=== PATIENT | male | born 1980 | race Caucasian/White ===

== ENCOUNTER 2016-12-18 11:36 | Emergency (ER) | payer OTHER ==
--- NOTE | 2016-12-18 13:51 | DIAGNOSTIC IMAGING REPORT ---
PROCEDURE: CT ABD/PELVIS WITH CONTRAST INDICATION: Abdominal and periumbilical pain. Nausea and diarrhea. TECHNIQUE: 145 ml of Isovue 300 were injected intravenously and axial images were obtained of the entire abdomen and pelvis with sagittal and coronal reformations. COMPARISON: None. FINDINGS: ABDOMEN: Findings suggest moderate to marked mucosal thickening in the cecum and involving the terminal ileum. Bowel pattern is otherwise normal including retrocecal appendix. Gallbladder, liver, spleen, pancreas, kidneys, and aorta are normal. PELVIS: Pelvic structures are normal. No evidence of free fluid. IMPRESSION: 1. Moderate to marked mucosal thickening involving the cecum and terminal ileum. Overall appearance is suspicious for ileal colitis (e.g., infectious most likely, Crohn disease less likely). Neoplastic process is less likely, although still a consideration. 2. Normal retrocecal appendix. 3. Otherwise negative CT abdomen and pelvis. 4. Findings discussed with SPENSER Lopez. All CT scans at this facility use dose modulation, iterative reconstruction, and/or weight-based dosing when appropriate to reduce radiation dose to as low as reasonably achievable.
--- NOTE | 2016-12-18 14:00 | ED ORDER SUMMARY ---
..... Patient: RENATA CALDWELL OrderSheet [facility] VisitID: [id number] [place] [address] 36y, M Registration Date/Time: 12/18/2016 ORDER SHEET Weight: 110.6 kg (stated) Allergies: None GENERAL ORDERS: CT Abd/Pel w Cont (No) (pending) Urgent (12:12/18/2016 HBivens A.R.N.P.) (Ack 12:36 OHhilarionandez) (13:22 Thuy) CBC w Diff Urgent (12:12/18/2016 HBivens A.R.N.P.) (Ack 12:36 Jeffrynandez) (12:41 MWinterer R.N.) CMP Urgent (12:12/18/2016 HBivens A.R.N.P.) (Ack 12:36 Devon) (12:41 MWinterer R.N.) UA-Culture if indicated Urgent (12:12/18/2016 HBivens A.R.N.P.) (Ack 12:36 OHhilarionandez) (13:05 MWinterer R.N.) Amylase Urgent (12:12/18/2016 HBivens A.R.N.P.) (Ack 12:36 OHhilarionandez) (12:41 MWinterer R.N.) Lipase Urgent (12:12/18/2016 HBivens A.R.N.P.) (Ack 12:36 Jeffrynandez) (12:41 MWinterer R.N.) MEDICATION ORDERS: IV FLUIDS: IV NS : initial bolus none -, then 1000 mL/hr (NOW) (12:12/18/2016 MWinterer R.N. per protocol) (12:29 MWinterer R.N.) Toradol IV 30 mg (NOW) (12:12/18/2016 HBivens A.R.N.P.) (12:41 MWinterer R.N.) Zofran IV 4 mg (NOW) (12:12/18/2016 HBivens A.R.N.P.) (12:41 MWinterer R.N.) IV Saline Lock (12:31 12/18/2016 HBivens A.R.N.P.) (12:32 MWinterer R.N.) Dilaudid IV 1 mg (HIGH ALERT MEDICATION, NOW) (13:51 12/18/2016 HBivens A.R.N.P.) (Ack 13:52 MWinterer R.N.) (14:00 MWinterer R.N.) Flagyl IV 500 mg/100mL (NOW) (13:59 12/18/2016 HBivens A.R.N.P.) (Ack 14:08 MWinterer R.N.) (14:30 MWinterer R.N.) Decadron IV 10 mg (NOW) (14:01 12/18/2016 HBivens A.R.N.P.) (Ack 14:08 MWinterer R.N.) (14:29 MWinterer R.N.) Dilaudid IV 1 mg (HIGH ALERT MEDICATION, NOW) (15:20 12/18/2016 HBivens A.R.N.P.) (15:20 MWinterer R.N.) ORDER SHEET NOTES: [Electronically signed by Paulette Gonzalez R.N. (16:16 12/18/2016)] [Electronically signed by Jennifer MartinR.N.P. (18:38 12/18/2016)] [Electronically locked/signed by Paulette Gonzalez R.N. (16:16 12/18/2016)]
--- NOTE | 2016-12-18 14:00 | ED CLINICAL REPORT ---
Clinical Report - Physicians/Mid Levels [facility] [address] [place] [address] 12/18/2016 11:37 Patient: RENATA CALDWELL Time Seen: 12:25; initial patient contact, initial documentation, patient care assumed. Arrived- By private vehicle. Historian- patient. HISTORY OF PRESENT ILLNESS Chief Complaint: ABDOMINAL PAIN. At its maximum, severity described as severe. When seen in the E.D., severity described as severe. Modifying factors- worsened by walking and supine position. Not relieved by anything. It is described as "pain", sharp and stabbing. No radiation. It is described as located in the upper abdomen, in the periumbilical area and in the lower abdomen. This started last night and is still present. It was abrupt in onset and has been constant. The patient has had nausea and loss of appetite. No vomiting or diarrhea. No additional abdominal pain. (took several otc meds, no better, pain is getting worse). No recent travel. Similar symptoms previously: None. Recent medical care: Not recently seen/assessed. REVIEW OF SYSTEMS No constipation, black stools, hematemesis, difficulty with urination or pain with urination. No urinary frequency, fever, chest pain or difficulty breathing. All systems otherwise negative, except as recorded above. PAST HISTORY Negative. SOCIAL HISTORY Never smoker. Occasional alcohol use. No drug use. No recent travel. Is a local resident. FAMILY HISTORY Negative. ADDITIONAL NOTES The nursing notes have been reviewed with agreement regarding the chief complaint, HPI, ROS, PMH and patient medications and allergies. PHYSICAL EXAM Vital Signs: 12/18/2016 12:07 BP: 156/102. HR: 57. RR: 18. O2 saturation: 97%. Temp: 98.5 F. Pain level now: 10/10. Have been reviewed as abnormal and appear to be correct. Hypertensive. Bradycardic. Respiratory rate normal. Temperature normal. Oxygen saturation normal. Appearance: Alert. Oriented X3. No acute distress. (pt laying position upon entering room in obvious discomfort). Eyes: Pupils equal, round and reactive to light. Eyes normal inspection. Neck: Normal inspection. Neck supple. CVS: Normal heart rate and rhythm. Heart sounds normal. Pulses normal. Respiratory: No respiratory distress. Breath sounds normal. Chest nontender. Abdomen: Soft. Moderate tenderness diffusely and in the periumbilical area (tender all around umbilicus). No guarding, rebound tenderness or Pat's, obturator or psoas sign present. Bowel sounds normal. No organomegaly. No mass. Tenderness present. Back: Normal inspection. Skin: Skin warm and dry. Normal skin color. No rash. Normal skin turgor. Extremities: Extremities exhibit normal ROM. No lower extremity edema. Neuro: Oriented X 3. No motor deficit. No sensory deficit. LABS, X-RAYS, AND EKG Abdominal CT: . IMPRESSION: 1. Moderate to marked mucosal thickening involving the cecum and terminal ileum. Overall appearance is suspicious for ileal colitis (e.g., infectious most likely, Crohn disease less likely). Neoplastic process is less likely, although still a consideration. 2. Normal retrocecal appendix. 3. Otherwise negative CT abdomen and pelvis. 4. Findings discussed with SPENSER Lopez. All CT scans at this facility use dose modulation, iterative reconstruction, and/or weight-based dosing when appropriate to reduce radiation dose to as low as reasonably achievable. Electronically Final signed by:Jules Garcia MD 12/18/2016 1:45:55 PM. The study was interpreted by the radiologist and discussed with the radiologist. Interpretation time: 13:49. Laboratory Tests: UA-Culture if indicated: (JOEL: 12/18/2016 13:00) ( MsgRcvd 12/18/2016 13:46) Final results Test Result Flag Units (Reference) URINE COLOR YELLOW URINE APPEARANCE CLEAR URINE GLUCOSE NEGATIVE (NEGATIVE) URINE BILIRUBIN NEGATIVE (NEGATIVE) URINE KETONE TRACE (NEGATIVE) URINE SPECIFIC GRAVITY 1.015 (1.010-1.030) URINE PH 6.5 (5.0-8.0) URINE PROTEIN NEGATIVE (NEGATIVE) URINE UROBILINOGEN 0.2 EU/dL (0.2-1.0) URINE NITRITE NEGATIVE (NEGATIVE) URINE BLOOD TRACE-INTACT (NEGATIVE) URINE LEUK ESTERASE NEGATIVE (NEGATIVE) URINE RBC 1-3 rbc/hpf (0-1) URINE WBC 0-1 wbc/hpf (0-1) URINE EPITHELIAL CELLS 0-1 EPI/hpf (0-5) URINE BACTERIA NONE SEEN (NONE SEEN) URINE COMMENT CULT NOT INDICATED URINE CULTURES ARE SET-UP BASED ON THE FOLLOWING CRITERIA:POSITIVE NITRITEPOSITIVE LEUKOCYTE ESTERASEGREATER THAN 10 WHITE BLOOD CELLSMODERATE (2+) OR GREATER BACTERIA CBC w Diff: (JOEL: 12/18/2016 12:15) ( [facility] 12/18/2016 13:33) Final results Test Result Flag Units (Reference) WHITE BLOOD COUNT 7.9 K/uL (4.5-11.5) RED BLOOD COUNT 6.25 *H M/uL (4.50-5.90) HEMOGLOBIN 18.4 H gm/dL (13.5-17.5) HEMATOCRIT 54.8 H % (41.0-53.0) MEAN CELL VOLUME 88 fL (80-100) MEAN CORPUSCULAR HGB 30 pg (26-34) MEAN CORPUSCULAR HGB CONC 34 g/dL (31-37) RED CELL DISTRIBUTION WIDTH 13.4 % (11.6-14.8) PLATELET COUNT 226 K/uL (150-400) POLY % 75 % (50-75) BAND % 0 % (0-8) LYMPH 20 L % (25-40) MONO 5 % (3-14) EOSINOPHIL % 0 % (0-4) BASOPHIL % 0 % (0-2) METAMYELOCYTE % 0 % (0-1) MYELOCYTE 0 % (0-1) OTHER CELL TYPE 0 CMP: (JOEL: 12/18/2016 12:15) ( [facility] 12/18/2016 12:59) Final results Test Result Flag Units (Reference) GLUCOSE 121 H mg/dL (70-110) BUN 12 mg/dL (7-18) CREATININE 1.2 mg/dL (0.6-1.3) Estimated GFR >60 mL/min Estimated GFR- >60 mL/min Note: Persistent reduction over 3 months in eGFR<60 mL/min/1.73 m2 defines CKD. Patients with eGFR values>=60 mL/min/1.73 m2 may also have CKD if evidence ofpersistent proteinuria. Additional information may be foundat [email or web address].org. SODIUM 133 L mmol/L (136-145) POTASSIUM 4.0 mmol/L (3.5-5.1) CHLORIDE 96 L mmol/L (98-107) CARBON DIOXIDE 34 H mmol/L (21-32) CALCIUM 9.6 mg/dL (8.5-10.1) TOTAL PROTEIN 7.3 g/dL (6.4-8.2) ALBUMIN 4.1 g/dL (3.3-5.0) BILIRUBIN, TOTAL 0.7 mg/dL (0.0-1.0) ALKALINE PHOSPHATASE 54 U/L (46-116) AST (SGOT) 48 H U/L (15-37) ALT (SGPT) 80 H U/L (12-78) LIPASE 150 U/L (73-393) AMYLASE 59 U/L (25-115) . PROGRESS AND PROCEDURES Course of Care: 12/18/2016 16:00 BP: 182/88. HR: 60. RR: 19. O2 saturation: 100%. Temp: 98.4 F. Vital Signs: have been reviewed as abnormal and appear to be correct. Hypertensive. Heart rate normal. Respiratory rate normal. Temperature normal. Oxygen saturation normal. Patient and family counseled in person regarding the patient's stable condition, test results and diagnosis. 1355. Differential Diagnosis: I considered gastritis, gastroenteritis, peptic ulcer disease, gastroesophageal reflux disease, acute appendicitis, mesenteric lymphadenitis, diverticulitis, colon cancer, Crohn's disease, obstipation, biliary colic, cholecystitis, cholelithiasis, hepatitis, pancreatitis, common bile duct obstruction, cholangitis, ureterolithiasis and viral syndrome as a possible cause of abdominal pain in this patient. This is a partial list of diagnoses considered. Above considerations are based on history, physical exam, reassessment, laboratory data and other information. Differential diagnosis was discussed with patient. Disposition: Discharged home in good and improved condition (14:00). Condition: good and stable. CLINICAL IMPRESSION Acute inflammatory colitis; infectious colitis. INSTRUCTIONS Do not work tomorrow, for two days. Warnings: Further evaluation is necessary in order to assess the possibility of serious illness. It is very important to follow up with a physician. GENERAL WARNINGS: Return or contact your physician immediately if your condition worsens or changes unexpectedly, if not improving as expected, or if other problems arise. SPECIFICALLY, return if you develop pain in the abdomen, fever, the inability to keep fluids down, blood in vomitus, blood in diarrhea, fainting or lightheadedness. Prescription Medications: Zofran 4 mg: Take 1 orally every six hours as needed for nausea/vomiting. Dispense ten (10). No refills. Substitution is permissible. Flagyl 500 mg: Take 1 tablet orally every 12 hours for 7 days. No refill. Substitution is permissible. [place] 5 mg / 325 mg tablets: take 1 to 2 orally every 6 hours as needed for pain. Dispense fifteen (15). No refills. Substitution is permissible. Bentyl 20 mg tablets: take 1 orally every 6 hours as needed. Dispense thirty (30). No refills. Substitution is permissible. Prednisone 20 mg: take 3 orally every day for 5 days. Dispense fifteen (15). No refills. Follow-up: Follow up with your doctor tomorrow even if well. Call for an appointment. Summary of care provided to patient. Screening today revealed the patient's blood pressure to be in the hypertensive range. The patient should follow up with a primary care provider for blood pressure management. Understanding of the discharge instructions verbalized by patient. Follow-up with: Antoine Wellington MD, Gastroenterology, [address] [place] [address], [address] [place] [address] [address] , [place], [address]; Fredo Piper MD, Gastroenterology, [address] [place] [address], [address] [place] [address], [address], [place], [address]; Shirin Correa MD, Gastroenteroloy, [address] [place] [address], [address] [place] [address] [address], [place], [address]; Sammy Hemphill MD, Gastroenteroloy, [address] [place] [address], [address] [place] [address] [address], [place], [address]; Aminta Irwin MD, Gastroenteroloy, [address] [place] [address], [address] [place] [address] [address], [place], [address] Follow up tomorrow in about days even if well. Call for an appointment. Summary of care provided to patient and family. (Electronically signed by Jennifer Martin A.R.N.P. 12/18/2016 18:38)
--- NOTE | 2016-12-18 14:00 | ED NURSING NOTES ---
Clinical Report - Nurses [facility] [address] [place] [address] 12/18/2016 11:37 Patient: RENATA CALDWELL TRIAGE Triage time 12:07. Acuity: LEVEL 2. Chief Complaint: ABDOMINAL PAIN and NAUSEA and ("pressure"). --12:15 Bee White R.N. 12:07 12/18/16. BP: 156/102. HR: 57. RR: 18. O2 saturation: 97%. Temp: 98.5 F. Pain level now: 04/11. Additional comments: 04/11 abdominal pain. --12:15 Bee White R.N. Weight: 110.6 kg stated. Height/Length: 73 inches Per Patient. BMI: 32.2. --12:13 Bee White R.N. Medications None. --12:11 Bee White R.N. Allergies None. --12:11 Bee White R.N. History Arrived by private vehicle. Historian: patient. This started last night. ( Abdominal pain that started last night around 2100, had eaten a meal and was just feeling "a little full" but then started to have more and more pain, with nausea. No diarrhea. Pain generalized, does not radiate to back.). 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 PAST MEDICAL HX: Immunizations: status is unknown. FALL RISK ASSESSMENT: Fall risk assessment completed. No fall risk identified. NUTRITIONAL RISK ASSESSMENT: The nutritional risk assessment revealed no deficiencies. FUNCTIONAL ASSESSMENT: Functional assessment: no impairments noted. LEARNING NEEDS ASSESSMENT: The learning needs assessment revealed no barriers. SKIN INTEGRITY ASSESSMENT: Skin integrity risk assessment completed. No skin integrity risk identified. --12:15 Bee White R.N. PROBLEMS: None. --12:11 Bee White R.N. Assessment The patient states feels the same. --12:15 Bee White R.N. Interventions ID band on patient. --12:15 Bee White R.N. PHYSICAL ASSESSMENT 12:56 12/18/16. Ambulatory to room. GENERAL / NEURO / PSYCH: Alert. Oriented X 4. Appears in no acute distress. HEENT: Mucous membranes are pink. RESPIRATORY: Respirations not labored. CVS: Capillary refill less than 2 seconds. GI / : Abdomen soft and nontender. SKIN: Skin is warm and dry. --12:56 Paulette Gonzalez R.N. NURSING PROGRESS NOTES 12:12/18/2016 Site #1 started via IV in the left antecubital space with an 20g angiocath, with aseptic technique and good blood return; one attempt. Blood drawn: rainbow set and pediatric tubes. Labeled in the presence of the patient and sent to the lab. --12:28 Paulette Gonzalez R.N. 12:12/18/2016 Started bag #1 1000 mL IV Fluids IV NS (Saline); at 1000 mL/hr over 1 hour(s) via site #1 via IV pump. Allergies verified and confirmed 5 rights. IV patency established. IV site checked: no pain, redness, or swelling. IV flushed thoroughly pre- and post-medication administration. --12:29 Paulette Gonzalez R.N. 12:41 12/18/2016 Toradol IVP 30 mg given over 1 minute(s) via site #1. Allergies verified and confirmed 5 rights. IV patency established. IV site checked: no pain, redness, or swelling. IV flushed thoroughly pre- and post-medication administration. IVP given by RN. --12:41 Paulette Gonzalez R.N. 12:41 12/18/2016 Zofran (Ondansetron HCl) IVP 4 mg given over 1 minute(s) via site #1. Allergies verified and confirmed 5 rights. IV patency established. IV site checked: no pain, redness, or swelling. IV flushed thoroughly pre- and post-medication administration. IVP given by RN. --12:41 Paulette Gonzalez R.N. Patient gowned. Two patient identifiers checked. Checked patient name and birthdate. Call light placed in reach. Bed placed in lowest position. Brakes of bed on. ( Pt ambulated to BR.). --12:56 Paulette Gonzalez R.N. 13:05 12/18/16. Checked patient name and birthdate: patient confirmed urine collected with return of yellow-colored clear urine; sample sent to lab. Specimen labeled in the presence of the patient. --13:05 Paulette Gonzalez R.N. 13:30 12/18/2016 IV Fluids IV NS Discontinued: bag #1 infused. Total amount infused: 1000 mL. IV patency established. IV site checked: no pain, redness, or swelling. IV flushed thoroughly. --16:13 Paulette Gonzalez R.N. 14:00 12/18/2016 Dilaudid (HYDROmorphone HCl PF) IVP 1 mg given over 2 minute(s) via site #1. Allergies verified, confirmed 5 rights and sedative warning given to the patient. IV patency established. IV site checked: no pain, redness, or swelling. IV flushed thoroughly pre- and post-medication administration. IVP given by RN. --14:00 Paulette Gonzalez R.N. 14:29 12/18/2016 Decadron IVP 10 mg given over 2 minute(s) via site #1. Allergies verified and confirmed 5 rights. IV patency established. IV site checked: no pain, redness, or swelling. IV flushed thoroughly pre- and post-medication administration. IVP given by RN. --14:29 Paulette Gonzalez R.N. 14:30 12/18/2016 Started 500 mg of Flagyl (MetroNIDAZOLE in NaCl) IVPB in bag #1 100 mL; at 100 mL/hr over 1 hour(s) via site #1 via IV pump. Allergies verified and confirmed 5 rights. IV patency established. IV site checked: no pain, redness, or swelling. IV flushed thoroughly pre- and post-medication administration. --14:30 Paulette Gonzalez R.N. 14:12/18/2016 Started bag #2 500 mL IV Fluids IV NS (Saline); at 500 mL/hr over 1 hour(s) via site #1 via IV pump. Allergies verified and confirmed 5 rights. IV patency established. IV site checked: no pain, redness, or swelling. IV flushed thoroughly pre- and post-medication administration (Bag 2 started with antibiotics). --16:15 Paulette Gonzalez R.N. 15:20 12/18/2016 Dilaudid (HYDROmorphone HCl PF) IVP 1 mg given over 1 minute(s) via site #1. Allergies verified, confirmed 5 rights and sedative warning given to the patient. IV patency established. IV site checked: no pain, redness, or swelling. IV flushed thoroughly pre- and post-medication administration. IVP given by RN. --15:20 Paulette Gonzalez R.N. 15:20 12/18/2016 IV Fluids IV NS Discontinued: bag #2 infused upon discharge. Total amount infused: 500 mL. IV patency established. IV site checked: no pain, redness, or swelling. IV flushed thoroughly. --16:16 Paulette Gonzalez R.N. 15:45 12/18/2016 Flagyl IVPB Discontinued: bag #1 infused. Total amount infused: 100 mL. IV patency established. IV site checked: no pain, redness, or swelling. IV flushed thoroughly. --16:00 Bobby Galdamez R.N. 15:55 12/18/2016 Site #1 removed upon discharge. Catheter intact. Manual pressure and bandage applied. --16:16 Paulette Gonzalez R.N. DISPOSITION / DISCHARGE 16:02 12/18/16. Departure time: 1559. Condition at departure: improved and stable. ( TRANSITION RN aware of discharge BP). No learning barriers present. Discharge instructions provided and reviewed with the patient. Reviewed medication(s) side effects, precautions, dosing and course information. Prescription(s) given to the patient. Work note given. Patient verbalized understanding. Written instructions provided in Macedonian. The patient was discharged by the nurse practitioner. He was discharged home and accompanied by spouse. He left the Emergency Department ambulatory and via private vehicle. Spouse driving. --16:06 Bobby Galdamez R.N. 16:00 12/18/16. BP: 182/88. HR: 60. RR: 19. O2 saturation: 100% on room air. Temp: 98.4 F (oral). Pain level now 6/10. --16:06 Bobby Galdamez R.N. Locked/Released at 12/18/2016 16:16 by Paulette Gonzalez R.N.
--- NOTE | 2016-12-18 14:00 | ED NURSING NOTES ---
Clinical Report - Nurses [facility] [address] [place] [address] 12/18/2016 11:37 Patient: RENATA CALDWELL TRIAGE Triage time 12:07. Acuity: LEVEL 2. Chief Complaint: ABDOMINAL PAIN and NAUSEA and ("pressure"). --12:15 Bee White R.N. 12:07 12/18/16. BP: 156/102. HR: 57. RR: 18. O2 saturation: 97%. Temp: 98.5 F. Pain level now: 04/11. Additional comments: 04/11 abdominal pain. --12:15 Bee White R.N. Weight: 110.6 kg stated. Height/Length: 73 inches Per Patient. BMI: 32.2. --12:13 Bee White R.N. Medications None. --12:11 Bee White R.N. Allergies None. --12:11 Bee White R.N. History Arrived by private vehicle. Historian: patient. This started last night. ( Abdominal pain that started last night around 2100, had eaten a meal and was just feeling "a little full" but then started to have more and more pain, with nausea. No diarrhea. Pain generalized, does not radiate to back.). 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 PAST MEDICAL HX: Immunizations: status is unknown. FALL RISK ASSESSMENT: Fall risk assessment completed. No fall risk identified. NUTRITIONAL RISK ASSESSMENT: The nutritional risk assessment revealed no deficiencies. FUNCTIONAL ASSESSMENT: Functional assessment: no impairments noted. LEARNING NEEDS ASSESSMENT: The learning needs assessment revealed no barriers. SKIN INTEGRITY ASSESSMENT: Skin integrity risk assessment completed. No skin integrity risk identified. --12:15 Bee White R.N. PROBLEMS: None. --12:11 Bee White R.N. Assessment The patient states feels the same. --12:15 Bee White R.N. Interventions ID band on patient. --12:15 Bee White R.N. PHYSICAL ASSESSMENT 12:56 12/18/16. Ambulatory to room. GENERAL / NEURO / PSYCH: Alert. Oriented X 4. Appears in no acute distress. HEENT: Mucous membranes are pink. RESPIRATORY: Respirations not labored. CVS: Capillary refill less than 2 seconds. GI / : Abdomen soft and nontender. SKIN: Skin is warm and dry. --12:56 Paulette Gonzalez R.N. NURSING PROGRESS NOTES 12:12/18/2016 Site #1 started via IV in the left antecubital space with an 20g angiocath, with aseptic technique and good blood return; one attempt. Blood drawn: rainbow set and pediatric tubes. Labeled in the presence of the patient and sent to the lab. --12:28 Paulette Gonzalez R.N. 12:12/18/2016 Started bag #1 1000 mL IV Fluids IV NS (Saline); at 1000 mL/hr over 1 hour(s) via site #1 via IV pump. Allergies verified and confirmed 5 rights. IV patency established. IV site checked: no pain, redness, or swelling. IV flushed thoroughly pre- and post-medication administration. --12:29 Paulette Gonzalez R.N. 12:41 12/18/2016 Toradol IVP 30 mg given over 1 minute(s) via site #1. Allergies verified and confirmed 5 rights. IV patency established. IV site checked: no pain, redness, or swelling. IV flushed thoroughly pre- and post-medication administration. IVP given by RN. --12:41 Paulette Gonzalez R.N. 12:41 12/18/2016 Zofran (Ondansetron HCl) IVP 4 mg given over 1 minute(s) via site #1. Allergies verified and confirmed 5 rights. IV patency established. IV site checked: no pain, redness, or swelling. IV flushed thoroughly pre- and post-medication administration. IVP given by RN. --12:41 Paulette Gonzalez R.N. Patient gowned. Two patient identifiers checked. Checked patient name and birthdate. Call light placed in reach. Bed placed in lowest position. Brakes of bed on. ( Pt ambulated to BR.). --12:56 Paulette Gonzalez R.N. 13:05 12/18/16. Checked patient name and birthdate: patient confirmed urine collected with return of yellow-colored clear urine; sample sent to lab. Specimen labeled in the presence of the patient. --13:05 Paulette Gonzalez R.N. 13:30 12/18/2016 IV Fluids IV NS Discontinued: bag #1 infused. Total amount infused: 1000 mL. IV patency established. IV site checked: no pain, redness, or swelling. IV flushed thoroughly. --16:13 Paulette Gonzalez R.N. 14:00 12/18/2016 Dilaudid (HYDROmorphone HCl PF) IVP 1 mg given over 2 minute(s) via site #1. Allergies verified, confirmed 5 rights and sedative warning given to the patient. IV patency established. IV site checked: no pain, redness, or swelling. IV flushed thoroughly pre- and post-medication administration. IVP given by RN. --14:00 Paulette Gonzalez R.N. 14:29 12/18/2016 Decadron IVP 10 mg given over 2 minute(s) via site #1. Allergies verified and confirmed 5 rights. IV patency established. IV site checked: no pain, redness, or swelling. IV flushed thoroughly pre- and post-medication administration. IVP given by RN. --14:29 Paulette Gonzalez R.N. 14:30 12/18/2016 Started 500 mg of Flagyl (MetroNIDAZOLE in NaCl) IVPB in bag #1 100 mL; at 100 mL/hr over 1 hour(s) via site #1 via IV pump. Allergies verified and confirmed 5 rights. IV patency established. IV site checked: no pain, redness, or swelling. IV flushed thoroughly pre- and post-medication administration. --14:30 Paulette Gonzalez R.N. 14:12/18/2016 Started bag #2 500 mL IV Fluids IV NS (Saline); at 500 mL/hr over 1 hour(s) via site #1 via IV pump. Allergies verified and confirmed 5 rights. IV patency established. IV site checked: no pain, redness, or swelling. IV flushed thoroughly pre- and post-medication administration (Bag 2 started with antibiotics). --16:15 Paulette Gonzalez R.N. 15:20 12/18/2016 Dilaudid (HYDROmorphone HCl PF) IVP 1 mg given over 1 minute(s) via site #1. Allergies verified, confirmed 5 rights and sedative warning given to the patient. IV patency established. IV site checked: no pain, redness, or swelling. IV flushed thoroughly pre- and post-medication administration. IVP given by RN. --15:20 Paulette Gonzalez R.N. 15:20 12/18/2016 IV Fluids IV NS Discontinued: bag #2 infused upon discharge. Total amount infused: 500 mL. IV patency established. IV site checked: no pain, redness, or swelling. IV flushed thoroughly. --16:16 Paulette Gonzalez R.N. 15:45 12/18/2016 Flagyl IVPB Discontinued: bag #1 infused. Total amount infused: 100 mL. IV patency established. IV site checked: no pain, redness, or swelling. IV flushed thoroughly. --16:00 Bobby Galdamez R.N. 15:55 12/18/2016 Site #1 removed upon discharge. Catheter intact. Manual pressure and bandage applied. --16:16 Paulette Gonzalez R.N. DISPOSITION / DISCHARGE 16:02 12/18/16. Departure time: 1559. Condition at departure: improved and stable. ( INVENTORY AUDIT CLERK aware of discharge BP). No learning barriers present. Discharge instructions provided and reviewed with the patient. Reviewed medication(s) side effects, precautions, dosing and course information. Prescription(s) given to the patient. Work note given. Patient verbalized understanding. Written instructions provided in Wolof. The patient was discharged by the nurse practitioner. He was discharged home and accompanied by spouse. He left the Emergency Department ambulatory and via private vehicle. Spouse driving. --16:06 Bobby Galdamez R.N. 16:00 12/18/16. BP: 182/88. HR: 60. RR: 19. O2 saturation: 100% on room air. Temp: 98.4 F (oral). Pain level now 6/10. --16:06 Bobby Galdamez R.N. Locked/Released at 12/18/2016 16:16 by Paulette Gonzalez R.N.
--- NOTE | 2016-12-18 14:00 | ED CLINICAL REPORT ---
Clinical Report - Physicians/Mid Levels [facility] [address] [place] [address] 12/18/2016 11:37 Patient: RENATA CALDWELL Time Seen: 12:25; initial patient contact, initial documentation, patient care assumed. Arrived- By private vehicle. Historian- patient. HISTORY OF PRESENT ILLNESS Chief Complaint: ABDOMINAL PAIN. At its maximum, severity described as severe. When seen in the E.D., severity described as severe. Modifying factors- worsened by walking and supine position. Not relieved by anything. It is described as "pain", sharp and stabbing. No radiation. It is described as located in the upper abdomen, in the periumbilical area and in the lower abdomen. This started last night and is still present. It was abrupt in onset and has been constant. The patient has had nausea and loss of appetite. No vomiting or diarrhea. No additional abdominal pain. (took several otc meds, no better, pain is getting worse). No recent travel. Similar symptoms previously: None. Recent medical care: Not recently seen/assessed. REVIEW OF SYSTEMS No constipation, black stools, hematemesis, difficulty with urination or pain with urination. No urinary frequency, fever, chest pain or difficulty breathing. All systems otherwise negative, except as recorded above. PAST HISTORY Negative. SOCIAL HISTORY Never smoker. Occasional alcohol use. No drug use. No recent travel. Is a local resident. FAMILY HISTORY Negative. ADDITIONAL NOTES The nursing notes have been reviewed with agreement regarding the chief complaint, HPI, ROS, PMH and patient medications and allergies. PHYSICAL EXAM Vital Signs: 12/18/2016 12:07 BP: 156/102. HR: 57. RR: 18. O2 saturation: 97%. Temp: 98.5 F. Pain level now: 10/10. Have been reviewed as abnormal and appear to be correct. Hypertensive. Bradycardic. Respiratory rate normal. Temperature normal. Oxygen saturation normal. Appearance: Alert. Oriented X3. No acute distress. (pt laying position upon entering room in obvious discomfort). Eyes: Pupils equal, round and reactive to light. Eyes normal inspection. Neck: Normal inspection. Neck supple. CVS: Normal heart rate and rhythm. Heart sounds normal. Pulses normal. Respiratory: No respiratory distress. Breath sounds normal. Chest nontender. Abdomen: Soft. Moderate tenderness diffusely and in the periumbilical area (tender all around umbilicus). No guarding, rebound tenderness or Pat's, obturator or psoas sign present. Bowel sounds normal. No organomegaly. No mass. Tenderness present. Back: Normal inspection. Skin: Skin warm and dry. Normal skin color. No rash. Normal skin turgor. Extremities: Extremities exhibit normal ROM. No lower extremity edema. Neuro: Oriented X 3. No motor deficit. No sensory deficit. LABS, X-RAYS, AND EKG Abdominal CT: . IMPRESSION: 1. Moderate to marked mucosal thickening involving the cecum and terminal ileum. Overall appearance is suspicious for ileal colitis (e.g., infectious most likely, Crohn disease less likely). Neoplastic process is less likely, although still a consideration. 2. Normal retrocecal appendix. 3. Otherwise negative CT abdomen and pelvis. 4. Findings discussed with SPENSER Lopez. All CT scans at this facility use dose modulation, iterative reconstruction, and/or weight-based dosing when appropriate to reduce radiation dose to as low as reasonably achievable. Electronically Final signed by:Jules Garcia MD 12/18/2016 1:45:55 PM. The study was interpreted by the radiologist and discussed with the radiologist. Interpretation time: 13:49. Laboratory Tests: UA-Culture if indicated: (JOEL: 12/18/2016 13:00) ( MsgRcvd 12/18/2016 13:46) Final results Test Result Flag Units (Reference) URINE COLOR YELLOW URINE APPEARANCE CLEAR URINE GLUCOSE NEGATIVE (NEGATIVE) URINE BILIRUBIN NEGATIVE (NEGATIVE) URINE KETONE TRACE (NEGATIVE) URINE SPECIFIC GRAVITY 1.015 (1.010-1.030) URINE PH 6.5 (5.0-8.0) URINE PROTEIN NEGATIVE (NEGATIVE) URINE UROBILINOGEN 0.2 EU/dL (0.2-1.0) URINE NITRITE NEGATIVE (NEGATIVE) URINE BLOOD TRACE-INTACT (NEGATIVE) URINE LEUK ESTERASE NEGATIVE (NEGATIVE) URINE RBC 1-3 rbc/hpf (0-1) URINE WBC 0-1 wbc/hpf (0-1) URINE EPITHELIAL CELLS 0-1 EPI/hpf (0-5) URINE BACTERIA NONE SEEN (NONE SEEN) URINE COMMENT CULT NOT INDICATED URINE CULTURES ARE SET-UP BASED ON THE FOLLOWING CRITERIA:POSITIVE NITRITEPOSITIVE LEUKOCYTE ESTERASEGREATER THAN 10 WHITE BLOOD CELLSMODERATE (2+) OR GREATER BACTERIA CBC w Diff: (JOEL: 12/18/2016 12:15) ( [facility] 12/18/2016 13:33) Final results Test Result Flag Units (Reference) WHITE BLOOD COUNT 7.9 K/uL (4.5-11.5) RED BLOOD COUNT 6.25 *H M/uL (4.50-5.90) HEMOGLOBIN 18.4 H gm/dL (13.5-17.5) HEMATOCRIT 54.8 H % (41.0-53.0) MEAN CELL VOLUME 88 fL (80-100) MEAN CORPUSCULAR HGB 30 pg (26-34) MEAN CORPUSCULAR HGB CONC 34 g/dL (31-37) RED CELL DISTRIBUTION WIDTH 13.4 % (11.6-14.8) PLATELET COUNT 226 K/uL (150-400) POLY % 75 % (50-75) BAND % 0 % (0-8) LYMPH 20 L % (25-40) MONO 5 % (3-14) EOSINOPHIL % 0 % (0-4) BASOPHIL % 0 % (0-2) METAMYELOCYTE % 0 % (0-1) MYELOCYTE 0 % (0-1) OTHER CELL TYPE 0 CMP: (JOEL: 12/18/2016 12:15) ( [facility] 12/18/2016 12:59) Final results Test Result Flag Units (Reference) GLUCOSE 121 H mg/dL (70-110) BUN 12 mg/dL (7-18) CREATININE 1.2 mg/dL (0.6-1.3) Estimated GFR >60 mL/min Estimated GFR- >60 mL/min Note: Persistent reduction over 3 months in eGFR<60 mL/min/1.73 m2 defines CKD. Patients with eGFR values>=60 mL/min/1.73 m2 may also have CKD if evidence ofpersistent proteinuria. Additional information may be foundat www.[email or web address].org. SODIUM 133 L mmol/L (136-145) POTASSIUM 4.0 mmol/L (3.5-5.1) CHLORIDE 96 L mmol/L (98-107) CARBON DIOXIDE 34 H mmol/L (21-32) CALCIUM 9.6 mg/dL (8.5-10.1) TOTAL PROTEIN 7.3 g/dL (6.4-8.2) ALBUMIN 4.1 g/dL (3.3-5.0) BILIRUBIN, TOTAL 0.7 mg/dL (0.0-1.0) ALKALINE PHOSPHATASE 54 U/L (46-116) AST (SGOT) 48 H U/L (15-37) ALT (SGPT) 80 H U/L (12-78) LIPASE 150 U/L (73-393) AMYLASE 59 U/L (25-115) . PROGRESS AND PROCEDURES Course of Care: 12/18/2016 16:00 BP: 182/88. HR: 60. RR: 19. O2 saturation: 100%. Temp: 98.4 F. Vital Signs: have been reviewed as abnormal and appear to be correct. Hypertensive. Heart rate normal. Respiratory rate normal. Temperature normal. Oxygen saturation normal. Patient and family counseled in person regarding the patient's stable condition, test results and diagnosis. 1355. Differential Diagnosis: I considered gastritis, gastroenteritis, peptic ulcer disease, gastroesophageal reflux disease, acute appendicitis, mesenteric lymphadenitis, diverticulitis, colon cancer, Crohn's disease, obstipation, biliary colic, cholecystitis, cholelithiasis, hepatitis, pancreatitis, common bile duct obstruction, cholangitis, ureterolithiasis and viral syndrome as a possible cause of abdominal pain in this patient. This is a partial list of diagnoses considered. Above considerations are based on history, physical exam, reassessment, laboratory data and other information. Differential diagnosis was discussed with patient. Disposition: Discharged home in good and improved condition (14:00). Condition: good and stable. CLINICAL IMPRESSION Acute inflammatory colitis; infectious colitis. INSTRUCTIONS Do not work tomorrow, for two days. Warnings: Further evaluation is necessary in order to assess the possibility of serious illness. It is very important to follow up with a physician. GENERAL WARNINGS: Return or contact your physician immediately if your condition worsens or changes unexpectedly, if not improving as expected, or if other problems arise. SPECIFICALLY, return if you develop pain in the abdomen, fever, the inability to keep fluids down, blood in vomitus, blood in diarrhea, fainting or lightheadedness. Prescription Medications: Zofran 4 mg: Take 1 orally every six hours as needed for nausea/vomiting. Dispense ten (10). No refills. Substitution is permissible. Flagyl 500 mg: Take 1 tablet orally every 12 hours for 7 days. No refill. Substitution is permissible. [place] 5 mg / 325 mg tablets: take 1 to 2 orally every 6 hours as needed for pain. Dispense fifteen (15). No refills. Substitution is permissible. Bentyl 20 mg tablets: take 1 orally every 6 hours as needed. Dispense thirty (30). No refills. Substitution is permissible. Prednisone 20 mg: take 3 orally every day for 5 days. Dispense fifteen (15). No refills. Follow-up: Follow up with your doctor tomorrow even if well. Call for an appointment. Summary of care provided to patient. Screening today revealed the patient's blood pressure to be in the hypertensive range. The patient should follow up with a primary care provider for blood pressure management. Understanding of the discharge instructions verbalized by patient. Follow-up with: Antoine Wellington MD, Gastroenterology, [address] [place] [address], [address] [place] [address] Ave[address] , [place], [address]; Fredo Piper MD, Gastroenterology, [address] [place] [address], [address] [place] [address], [address], [place], [address]; Shirin Correa MD, Gastroenteroloy, [address] [place] [address], [address] [place] [address] [address], [place], [address]; Sammy Hemphill MD, Gastroenteroloy, [address] [place] [address], [address] [place] [address] [address], [place], [address]; Aminta Irwin MD, Gastroenteroloy, [address] [place] [address], [address] [place] [address] [address], [place], [address] Follow up tomorrow in about days even if well. Call for an appointment. Summary of care provided to patient and family. (Electronically signed by Jennifer Martin A.R.N.P. 12/18/2016 18:38)
--- NOTE | 2016-12-18 14:00 | ED ORDER SUMMARY ---
..... Patient: RENATA CALDWELL OrderSheet [facility] VisitID: [id number] [place] [address] 36y, M Registration Date/Time: 12/18/2016 ORDER SHEET Weight: 110.6 kg (stated) Allergies: None GENERAL ORDERS: CT Abd/Pel w Cont (No) (pending) Urgent (12:12/18/2016 HBivens A.R.N.P.) (Ack 12:36 OHhilarionandez) (13:22 Thuy) CBC w Diff Urgent (12:12/18/2016 HBivens A.R.N.P.) (Ack 12:36 Jeffrynandez) (12:41 MWinterer R.N.) CMP Urgent (12:12/18/2016 HBivens A.R.N.P.) (Ack 12:36 Devon) (12:41 MWinterer R.N.) UA-Culture if indicated Urgent (12:12/18/2016 HBivens A.R.N.P.) (Ack 12:36 OHhilarionandez) (13:05 MWinterer R.N.) Amylase Urgent (12:12/18/2016 HBivens A.R.N.P.) (Ack 12:36 OHhilarionandez) (12:41 MWinterer R.N.) Lipase Urgent (12:12/18/2016 HBivens A.R.N.P.) (Ack 12:36 Jeffrynandez) (12:41 MWinterer R.N.) MEDICATION ORDERS: IV FLUIDS: IV NS : initial bolus none -, then 1000 mL/hr (NOW) (12:12/18/2016 MWinterer R.N. per protocol) (12:29 MWinterer R.N.) Toradol IV 30 mg (NOW) (12:12/18/2016 HBivens A.R.N.P.) (12:41 MWinterer R.N.) Zofran IV 4 mg (NOW) (12:12/18/2016 HBivens A.R.N.P.) (12:41 MWinterer R.N.) IV Saline Lock (12:31 12/18/2016 HBivens A.R.N.P.) (12:32 MWinterer R.N.) Dilaudid IV 1 mg (HIGH ALERT MEDICATION, NOW) (13:51 12/18/2016 HBivens A.R.N.P.) (Ack 13:52 MWinterer R.N.) (14:00 MWinterer R.N.) Flagyl IV 500 mg/100mL (NOW) (13:59 12/18/2016 HBivens A.R.N.P.) (Ack 14:08 MWinterer R.N.) (14:30 MWinterer R.N.) Decadron IV 10 mg (NOW) (14:01 12/18/2016 HBivens A.R.N.P.) (Ack 14:08 MWinterer R.N.) (14:29 MWinterer R.N.) Dilaudid IV 1 mg (HIGH ALERT MEDICATION, NOW) (15:20 12/18/2016 HBivens A.R.N.P.) (15:20 MWinterer R.N.) ORDER SHEET NOTES: [Electronically signed by Paulette Gonzalez R.N. (16:16 12/18/2016)] [Electronically signed by Jennifer MartinR.N.P. (18:38 12/18/2016)] [Electronically locked/signed by Paulette Gonzalez R.N. (16:16 12/18/2016)]
--- NOTE | 2016-12-18 18:38 | ED MED RECONCILIATION SUMMARY ---
Patient: RENATA CALDWELL Medication Reconciliation Report [facility] VisitID: [id number] [address] [place] [address] 36y, M Registration Date/Time: 12/18/2016 Weight: 110.6 kg Height/Length: 73 in. BMI: 32.2 ALLERGIES: None The patient's Home Medications are listed below: NONE. The source(s) of the original Home Medication information: Not obtained. The following Medications were given to the patient in the Emergency Department: IV NS IV Fluids bolus 0, then 1000 mL/hr, administered: 12/18/2016 12:29:00 PM Toradol [IVP] IVP 30 mg, administered: 12/18/2016 12:41:00 PM Zofran [IVP] IVP 4 mg, administered: 12/18/2016 12:41:00 PM Dilaudid [IVP] IVP 1 mg, administered: 12/18/2016 2:00:00 PM Decadron [IVP] IVP 10 mg, administered: 12/18/2016 2:29:00 PM Flagyl [IVPB] IVPB bolus 0, then 500 mg 100 mL/hr, administered: 12/18/2016 2:30:00 PM Dilaudid [IVP] IVP 1 mg, administered: 12/18/2016 3:20:00 PM IV NS IV Fluids bolus 0, then 500 mL/hr, administered: 12/18/2016 2:30:00 PM The following Medications were prescribed to the patient: Zofran 4 mg: Take 1 orally every six hours as needed for nausea/vomiting. Dispense ten (10). No refills. Substitution is permissible. -- Jennifer Martin A.R.N.P. Flagyl 500 mg: Take 1 tablet orally every 12 hours for 7 days. No refill. Substitution is permissible. -- Jennifer Martin A.R.N.P. [place] 5 mg / 325 mg tablets: take 1 to 2 orally every 6 hours as needed for pain. Dispense fifteen (15). No refills. Substitution is permissible. -- Jennifer Martin A.R.N.P. Bentyl 20 mg tablets: take 1 orally every 6 hours as needed. Dispense thirty (30). No refills. Substitution is permissible. -- Jennifer Martin A.R.N.PTristan Prednisone 20 mg: take 3 orally every day for 5 days. Dispense fifteen (15). No refills. -- Jennifer Martin A.R.N.P.
--- NOTE | 2016-12-18 18:38 | ED MAR SUMMARY ---
..... Medication Administration Record [facility] [address], [place] [address] Patient: RENATA CALDWELL Visit ID: [id number] 36y, M Weight: 110.6 kg Height/Length: 73 in BMI: 32.2 ALLERGIES: None Start 12:29 12/18/2016 Paulette Gonzalez R.N., Stop 13:30 12/18/2016 Paulette Gonzalez R.N. Medication Administered: IV NS (SALINE), Dose: IV Fluids over 1 hour(s), Rate: 1000 mL/hr, Dispensed: 1000 mL bag, Site: #1 left AC. Medication Ordered: IV NS : initial bolus none -, then 1000 mL/hr (NOW). Given 12:41 12/18/2016 Pauletet Gonzalez R.N. Medication Administered: TORADOL [IVP], Dose: 30 mg IVP over 1 minute(s), Site: #1 left AC. Medication Ordered: Toradol IV 30 mg (NOW). Given 12:12/18/2016 Paulette Gonzalez R.N. Medication Administered: ZOFRAN [IVP] (ONDANSETRON HCL), Dose: 4 mg IVP over 1 minute(s), Site: #1 left AC. Medication Ordered: Zofran IV 4 mg (NOW). Given 14:00 12/18/2016 Paulette Gonzalez R.N. Medication Administered: DILAUDID [IVP] (HYDROMORPHONE HCL PF), Dose: 1 mg IVP over 2 minute(s), Site: #1 left AC. Medication Ordered: Dilaudid IV 1 mg (HIGH ALERT MEDICATION, NOW). Given 14:29 12/18/2016 Paulette Gonzalez R.N. Medication Administered: DECADRON [IVP], Dose: 10 mg IVP over 2 minute(s), Site: #1 left AC. Medication Ordered: Decadron IV 10 mg (NOW). Start 14:30 12/18/2016 Paulette Gonzalez R.N., Stop 15:20 12/18/2016 Paulette Gonzalez R.N. Medication Administered: IV NS (SALINE), Dose: IV Fluids over 1 hour(s), Rate: 500 mL/hr, Dispensed: 500 mL bag, Site: #1 left AC. Medication Ordered: IV NS : initial bolus none -, then 1000 mL/hr (NOW). Start 14:30 12/18/2016 Paulette Gonzalez, R.N., Stop 15:45 12/18/2016 Bobby Galdamez RTristanN. Medication Administered: FLAGYL [IVPB] (METRONIDAZOLE IN NACL), Dose: 500 mg IVPB over 1 hour(s), Rate: 100 mL/hr, Dispensed: 100 mL bag, Site: #1 left AC. Medication Ordered: Flagyl IV 500 mg/100mL (NOW). Given 15:20 12/18/2016 Paulette Gonzalez, RTristanN. Medication Administered: DILAUDID [IVP] (HYDROMORPHONE HCL PF), Dose: 1 mg IVP over 1 minute(s), Site: #1 left AC. Medication Ordered: Dilaudid IV 1 mg (HIGH ALERT MEDICATION, NOW).
--- NOTE | 2016-12-18 18:38 | ED MED RECONCILIATION SUMMARY ---
Patient: RENATA CALDWELL Medication Reconciliation Report [facility] VisitID: [id number] [address] [place] [address] 36y, M Registration Date/Time: 12/18/2016 Weight: 110.6 kg Height/Length: 73 in. BMI: 32.2 ALLERGIES: None The patient's Home Medications are listed below: NONE. The source(s) of the original Home Medication information: Not obtained. The following Medications were given to the patient in the Emergency Department: IV NS IV Fluids bolus 0, then 1000 mL/hr, administered: 12/18/2016 12:29:00 PM Toradol [IVP] IVP 30 mg, administered: 12/18/2016 12:41:00 PM Zofran [IVP] IVP 4 mg, administered: 12/18/2016 12:41:00 PM Dilaudid [IVP] IVP 1 mg, administered: 12/18/2016 2:00:00 PM Decadron [IVP] IVP 10 mg, administered: 12/18/2016 2:29:00 PM Flagyl [IVPB] IVPB bolus 0, then 500 mg 100 mL/hr, administered: 12/18/2016 2:30:00 PM Dilaudid [IVP] IVP 1 mg, administered: 12/18/2016 3:20:00 PM IV NS IV Fluids bolus 0, then 500 mL/hr, administered: 12/18/2016 2:30:00 PM The following Medications were prescribed to the patient: Zofran 4 mg: Take 1 orally every six hours as needed for nausea/vomiting. Dispense ten (10). No refills. Substitution is permissible. -- Jennifer Martin A.R.N.P. Flagyl 500 mg: Take 1 tablet orally every 12 hours for 7 days. No refill. Substitution is permissible. -- Jennifer Martin A.R.N.P. [place] 5 mg / 325 mg tablets: take 1 to 2 orally every 6 hours as needed for pain. Dispense fifteen (15). No refills. Substitution is permissible. -- Jennifer Martin A.R.N.P. Bentyl 20 mg tablets: take 1 orally every 6 hours as needed. Dispense thirty (30). No refills. Substitution is permissible. -- Jennifer Martin A.R.N.PTristan Prednisone 20 mg: take 3 orally every day for 5 days. Dispense fifteen (15). No refills. -- Jennifer Martin A.R.N.P.
--- NOTE | 2016-12-18 18:38 | ED DISCHARGE INSTRUCTIONS ---
Patient: RENATA CALDWELL General Instructions [facility] VisitID: [id number] [place] [address] 36y, M Registration Date/Time: 12/18/2016 Acute inflammatory colitis; infectious colitis. INSTRUCTIONS Do not work tomorrow, for two days. Warnings: Further evaluation is necessary in order to assess the possibility of serious illness. It is very important to follow up with a physician. GENERAL WARNINGS: Return or contact your physician immediately if your condition worsens or changes unexpectedly, if not improving as expected, or if other problems arise. SPECIFICALLY, return if you develop pain in the abdomen, fever, the inability to keep fluids down, blood in vomitus, blood in diarrhea, fainting or lightheadedness. Prescription Medications: Zofran 4 mg: Take 1 orally every six hours as needed for nausea/vomiting. Dispense ten (10). No refills. Substitution is permissible. Flagyl 500 mg: Take 1 tablet orally every 12 hours for 7 days. No refill. Substitution is permissible. [place] 5 mg / 325 mg tablets: take 1 to 2 orally every 6 hours as needed for pain. Dispense fifteen (15). No refills. Substitution is permissible. Bentyl 20 mg tablets: take 1 orally every 6 hours as needed. Dispense thirty (30). No refills. Substitution is permissible. Prednisone 20 mg: take 3 orally every day for 5 days. Dispense fifteen (15). No refills. Follow-up: Follow up with your doctor tomorrow even if well. Call for an appointment. Summary of care provided to patient. Screening today revealed the patient's blood pressure to be in the hypertensive range. The patient should follow up with a primary care provider for blood pressure management. Understanding of the discharge instructions verbalized by patient. Follow-up with: Antoine Wellington MD, Gastroenterology, , [address] [place], [place] [address]., , [place], [address]; Fredo Piper MD, Gastroenterology, , [facility], [address], [place], [address]; Shirin Correa MD, Gastroenteroloy, , [address] [place], [place] [address]., [address], [place], [address]; Sammy Hemphill MD, Gastroenteroloy, , [address], [place], [address]; Aminta Irwin MD, Gastroenteroloy, , [address], [place], [address] Follow up tomorrow in about days even if well. Call for an appointment. Summary of care provided to patient and family. ADDITIONAL INFORMATION Irritable Bowel Syndrome Irritable Bowel Syndrome (IBS) is a disorder of the intestines. It causes one of three patterns of symptoms: Chronic abdominal pain and constipation (spastic colitis) Recurring episodes of diarrhea, with or without pain Alternating diarrhea and constipation The cause of IBS is not known. Symptoms are usually mild and can be controlled by learning to manage stress and making changes in your diet and lifestyle. These include: Constipation may be avoided by increasing fiber in your diet. Fiber supplements, psyllium (Metamucil) or methylcellulose (Citrucel) with extra fluids are also helpful. Diarrhea can be treated with careful use of [id number] medicines such as loperamide (Imodium). Bloating or passing excess gas may be controlled by limiting your intake of carbonated beverages, salads, raw fruits and vegetables, cabbage, broccoli and cauliflower. Stress often benefits from counseling as well as self-help measures such as exercise, yoga, and meditation. More severe symptoms may require prescription medicine. Depression can be a component of this illness and antidepressant medicine may be prescribed. This may actually help with diarrhea, constipation, cramping as well as symptoms of depression. Intestinal cramping may benefit from anticholinergic medicine. Home Care: Look for factors that seem to worsen your symptoms such as stress and emotions, rapid or irregular eating habits, overuse of laxatives or enemas. Certain foods such as fatty foods, fried foods, caffeine, and dairy products may worsen your symptoms. Keep a food log to figure out what you are sensitive to. If you have constipation, putting more fiber into your diet will help. Foods high in fiber include fresh fruits and peelings you can eat, raw or lightly cooked vegetables, whole grain cereals, nuts, dried beans and peas. Bran is also a very good source of fiber. If severe stress is a factor in your life and self help methods are not working, talk to your doctor about ways to manage stress. Follow Up with your doctor or as directed by our staff if you do not begin to improve over the next 2-3 days. Get Prompt Medical Attention if any of the following occur: Increase in abdominal pain Constant abdominal pain that moves to the right-lower abdomen Persistent vomiting (can't keep liquids down) Excessive diarrhea Blood in your stool (red or black color) or mucus in your stool Feeling very weak or dizzy, fainting or extreme thirst Fever of 100.4F (38C) or higher, or as directed by your healthcare provider Ulcerative Colitis You have been diagnosed with ulcerative colitis. Ulcerative colitis is inflammation that occurs in the rectum and colon. It is a form of Inflammatory Bowel Disease (IBD). No one knows what causes IBD, but the symptoms can be treated and people with IBD can lead full, active lives. Home Care: Follow the diet that was prescribed for you by your doctor. Avoid any foods that make your symptoms worse. These foods vary from person to person. Keep a diary of foods that disagree with you, and share this information with your doctor or journeyman mechanic. Take your medications as directed. Follow Up with your doctor or as advised by our staff. Report any unintended weight loss over 10 pounds over 3-6 months to your doctor. Get Prompt Medical Attention if any of the following occur: Bleeding from your rectum Frequent diarrhea or abdominal pain not controlled by your medicine Bloody diarrhea Fever of 100.4F (38C) or higher, or as directed by your healthcare provider Persistent nausea or repeated vomiting Wise Diet A bland diet is used for patients with an upset stomach. It consists of foods that are mild and easy to digest. It is better to eat small frequent meals rather than three large meals a day. BEVERAGES OK: Fruit juices, non-caffeinated teas and coffee, non-carbonated aragon AVOID: Carbonated beverage, caffeinated tea and coffee, all alcoholic beverages BREAD OK: Refined white, wheat or rye bread, avery or soda crackers, Bowman toast, plain rolls, bagels AVOID: Whole-grain bread CEREAL OK: Refined cereals: cooked or ready to eat AVOID: Whole grain cereals and granola, or those containing bran, seeds or nuts DESSERTS OK: Peanut butter and all others except those to "avoid" AVOID: Chocolate, cocoa, coconut, popcorn, nuts, seeds, jam, marmalade FRUITS OK: Canned, cooked, frozen or fresh fruits without seeds or tough skin AVOID: Olives, skin and seeds of fruit MEATS OK: All fresh or preserved meat, fish and fowl AVOID: Any that are prepared with those spices to "avoid" CHEESE & EGGS OK: Eggs, cottage cheese, cream cheese, other cheeses AVOID: All cheeses made with those spices to "avoid" POTATOES & PASTA OK: Potato, rice, macaroni, noodles, spaghetti AVOID: None SOUPS OK: All soups without heavy seasoning AVOID: Soups made with those spices to "avoid" VEGETABLES OK: Canned, cooked, fresh or frozen mildly flavored vegetables without seeds, skins or coarse fiber AVOID: Vegetables prepared with those spices to "avoid"; skin and seeds of vegetables and those with coarse fiber SPICES OK: Salt, lemon and ute mountain juice, vinegar, all extracts, ryley, cinnamon, thyme, mace, allspice, paprika AVOID: Niotaze powder, cloves, pepper, seed spices, garlic, gravy pickles, highly seasoned salad dressings Ondansetron Oral disintegrating tablet What is this medicine? ONDANSETRON (on LISA se lena) is used to treat nausea and vomiting caused by chemotherapy. It is also used to prevent or treat nausea and vomiting after surgery. How should I use this medicine? These tablets are made to dissolve in the mouth. Do not try to push the tablet through the foil backing. With dry hands, peel away the foil backing and gently remove the tablet. Place the tablet in the mouth and allow it to dissolve, then swallow. While you may take these tablets with water, it is not necessary to do so. Talk to your aircraft pneudraulics repairer regarding the use of this medicine in children. Special care may be needed. What side effects may I notice from receiving this medicine? Side effects that you should report to your doctor or health healthcare risk control consultant as soon as possible: allergic reactions like skin rash, itching or hives, swelling of the face, lips, or tongue breathing problems dizziness fast or irregular heartbeat feeling faint or lightheaded, falls fever and chills swelling of the hands and feet tightness in the chest Side effects that usually do not require medical attention (report to your doctor or health healthcare risk control consultant if they continue or are bothersome): constipation or diarrhea headache What may interact with this medicine? Do not take this medicine with any of the following medications: -apomorphine -cisapride -dofetilide -dronedarone -pimozide -thioridazine -ziprasidone This medicine may also interact with the following medications: -carbamazepine -phenytoin -rifampicin -tramadol -other medicines that prolong the QT interval (cause an abnormal heart rhythm) What if I miss a dose? If you miss a dose, take it as soon as you can. If it is almost time for your next dose, take only that dose. Do not take double or extra doses. Where should I keep my medicine? Keep out of the reach of children. Store between 2 and 30 degrees C (36 and 86 degrees F). Throw away any unused medicine after the expiration date. What should I tell my health care provider before I take this medicine? They need to know if you have any of these conditions: heart disease history of irregular heartbeat liver disease low levels of magnesium or potassium in the blood an unusual or allergic reaction to ondansetron, granisetron, other medicines, foods, dyes, or preservatives or trying to get breast-feeding What should I watch for while using this medicine? Check with your doctor or health healthcare risk control consultant as soon as you can if you have any sign of an allergic reaction. Metronidazole Oral tablet What is this medicine? METRONIDAZOLE (me troe NI da zole) is an antiinfective. It is used to treat certain kinds of bacterial and protozoal infections. It will not work for colds, flu, or other viral infections. How should I use this medicine? Take this medicine by mouth with a full glass of water. Follow the directions on the prescription label. Take your medicine at regular intervals. Do not take your medicine more often than directed. Take all of your medicine as directed even if you think you are better. Do not skip doses or stop your medicine early. Talk to your aircraft pneudraulics repairer regarding the use of this medicine in children. Special care may be needed. What side effects may I notice from receiving this medicine? Side effects that you should report to your doctor or health healthcare risk control consultant as soon as possible: allergic reactions like skin rash or hives, swelling of the face, lips, or tongue confusion, clumsiness difficulty speaking discolored or sore mouth dizziness fever, infection numbness, tingling, pain or weakness in the hands or feet trouble passing urine or change in the amount of urine redness, blistering, peeling or loosening of the skin, including inside the mouth seizures unusually weak or tired vaginal irritation, dryness, or discharge Side effects that usually do not require medical attention (report to your doctor or health healthcare risk control consultant if they continue or are bothersome): diarrhea headache irritability metallic taste nausea stomach pain or cramps trouble sleeping What may interact with this medicine? Do not take this medicine with any of the following medications: alcohol or any product that contains alcohol amprenavir oral solution cisapride disulfiram dofetilide dronedarone paclitaxel injection pimozide ritonavir oral solution sertraline oral solution sulfamethoxazole-trimethoprim injection thioridazine ziprasidone This medicine may also interact with the following medications: cimetidine lithium other medicines that prolong the QT interval (cause an abnormal heart rhythm) phenobarbital phenytoin warfarin What if I miss a dose? If you miss a dose, take it as soon as you can. If it is almost time for your next dose, take only that dose. Do not take double or extra doses. Where should I keep my medicine? Keep out of the reach of children. Store at room temperature below 25 degrees C (77 degrees F). Protect from light. Keep container tightly closed. Throw away any unused medicine after the expiration date. What should I tell my health care provider before I take this medicine? They need to know if you have any of these conditions: anemia or other blood disorders disease of the nervous system fungal or yeast infection if you drink alcohol containing drinks liver disease seizures an unusual or allergic reaction to metronidazole, or other medicines, foods, dyes, or preservatives or trying to get breast-feeding What should I watch for while using this medicine? Tell your doctor or health healthcare risk control consultant if your symptoms do not improve or if they get worse. You may get drowsy or dizzy. Do not drive, use machinery, or do anything that needs mental alertness until you know how this medicine affects you. Do not stand or sit up quickly, especially if you are an older patient. This reduces the risk of dizzy or fainting spells. Avoid alcoholic drinks while you are taking this medicine and for three days afterward. Alcohol may make you feel dizzy, sick, or flushed. If you are being treated for a sexually transmitted disease, avoid sexual contact until you have finished your treatment. Your sexual partner may also need treatment. Hydrocodone Bitartrate, Acetaminophen Oral tablet What is this medicine? ACETAMINOPHEN; HYDROCODONE (a set a LESLIE dewey fen; kareen droe KOE done) is a pain reliever. It is used to treat mild to moderate pain. How should I use this medicine? Take this medicine by mouth. Swallow it with a full glass of water. Follow the directions on the prescription label. If the medicine upsets your stomach, take the medicine with food or milk. Do not take more than you are told to take. Talk to your aircraft pneudraulics repairer regarding the use of this medicine in children. This medicine is not approved for use in children. What side effects may I notice from receiving this medicine? Side effects that you should report to your doctor or health healthcare risk control consultant as soon as possible: allergic reactions like skin rash, itching or hives, swelling of the face, lips, or tongue breathing problems confusion feeling faint or lightheaded, falls stomach pain yellowing of the eyes or skin Side effects that usually do not require medical attention (report to your doctor or health healthcare risk control consultant if they continue or are bothersome): nausea, vomiting stomach upset What may interact with this medicine? alcohol antihistamines isoniazid medicines for depression, anxiety, or psychotic disturbances medicines for sleep muscle relaxants naltrexone narcotic medicines (opiates) for pain phenobarbital ritonavir tramadol What if I miss a dose? If you miss a dose, take it as soon as you can. If it is almost time for your next dose, take only that dose. Do not take double or extra doses. Where should I keep my medicine? Keep out of the reach of children. This medicine can be abused. Keep your medicine in a safe place to protect it from theft. Do not share this medicine with anyone. Selling or giving away this medicine is dangerous and against the law. Store at room temperature between 15 and 30 degrees C (59 and 86 degrees F). Protect from light. Keep container tightly closed. Throw away any unused medicine after the expiration date. Discard unused medicine and used packaging carefully. Pets and children can be harmed if they find used or lost packages. What should I tell my health care provider before I take this medicine? They need to know if you have any of these conditions: brain tumor Crohn's disease, inflammatory bowel disease, or ulcerative colitis drink more than 3 alcohol-containing drinks per day drug abuse or addiction head injury heart or circulation problems kidney disease or problems going to the bathroom liver disease lung disease, asthma, or breathing problems an unusual or allergic reaction to acetaminophen, hydrocodone, other opioid analgesics, other medicines, foods, dyes, or preservatives or trying to get breast-feeding What should I watch for while using this medicine? Tell your doctor or health healthcare risk control consultant if your pain does not go away, if it gets worse, or if you have new or a different type of pain. You may develop tolerance to the medicine. Tolerance means that you will need a higher dose of the medicine for pain relief. Tolerance is normal and is expected if you take the medicine for a long time. Do not suddenly stop taking your medicine because you may develop a severe reaction. Your body becomes used to the medicine. This does NOT mean you are addicted. Addiction is a behavior related to getting and using a drug for a non-medical reason. If you have pain, you have a medical reason to take pain medicine. Your doctor will tell you how much medicine to take. If your doctor wants you to stop the medicine, the dose will be slowly lowered over time to avoid any side effects. You may get drowsy or dizzy when you first start taking the medicine or change doses. Do not drive, use machinery, or do anything that may be dangerous until you know how the medicine affects you. Stand or sit up slowly. There are different types of narcotic medicines (opiates) for pain. If you take more than one type at the same time, you may have more side effects. Give your health care provider a list of all medicines you use. Your doctor will tell you how much medicine to take. Do not take more medicine than directed. Call emergency for help if you have problems breathing. The medicine will cause constipation. Try to have a bowel movement at least every 2 to 3 days. If you do not have a bowel movement for 3 days, call your doctor or health healthcare risk control consultant. Too much acetaminophen can be very dangerous. Do not take Tylenol (acetaminophen) or medicines that contain acetaminophen with this medicine. Many non-prescription medicines contain acetaminophen. Always read the labels carefully. Dicyclomine Hydrochloride Oral tablet What is this medicine? DICYCLOMINE (dye NOAH hansen) is used to treat bowel problems including irritable bowel syndrome. How should I use this medicine? Take this medicine by mouth with a glass of water. Follow the directions on the prescription label. It is best to take this medicine on an empty stomach, 30 minutes to 1 hour before meals. Take your medicine at regular intervals. Do not take your medicine more often than directed. Talk to your aircraft pneudraulics repairer regarding the use of this medicine in children. Special care may be needed. While this drug may be prescribed for children as young as 6 months of age for selected conditions, precautions do apply. Patients over 65 years old may have a stronger reaction and need a smaller dose. What side effects may I notice from receiving this medicine? Side effects that you should report to your doctor or health healthcare risk control consultant as soon as possible: agitation, nervousness, confusion difficulty swallowing dizziness, drowsiness fast or slow heartbeat hallucinations pain or difficulty passing urine Side effects that usually do not require medical attention (report to your doctor or health healthcare risk control consultant if they continue or are bothersome): constipation headache nausea or vomiting sexual difficulty What may interact with this medicine? amantadine antacids benztropine digoxin disopyramide medicines for allergies, colds and breathing difficulties medicines for alzheimer's disease medicines for anxiety or sleeping problems medicines for depression or psychotic disturbances medicines for diarrhea medicines for pain metoclopramide tegaserod What if I miss a dose? If you miss a dose, take it as soon as you can. If it is almost time for your next dose, take only that dose. Do not take double or extra doses. Where should I keep my medicine? Keep out of the reach of children. Store at room temperature below 30 degrees C (86 degrees F). Protect from light. Throw away any unused medicine after the expiration date. What should I tell my health care provider before I take this medicine? They need to know if you have any of these conditions: difficulty passing urine esophagus problems or heartburn glaucoma heart disease, or previous heart attack myasthenia gravis prostate trouble stomach infection, or obstruction ulcerative colitis an unusual or allergic reaction to dicyclomine, other medicines, foods, dyes, or preservatives or trying to get breast-feeding What should I watch for while using this medicine? You may get drowsy, dizzy, or have blurred vision. Do not drive, use machinery, or do anything that needs mental alertness until you know how this medicine affects you. To reduce the risk of dizzy or fainting spells, do not sit or stand up quickly, especially if you are an older patient. Alcohol can make you more drowsy, avoid alcoholic drinks. Stay out of bright light and wear sunglasses if this medicine makes your eyes more sensitive to light. Avoid extreme heat (hot tubs, saunas). This medicine can cause you to sweat less than normal. Your body temperature could increase to dangerous levels, which may lead to heat stroke. Antacids can stop this medicine from working. If you get an upset stomach and want to take an antacid, make sure there is an interval of at least 1 to 2 hours before or after you take this medicine. Your mouth may get dry. Chewing sugarless gum or sucking hard candy, and drinking plenty of water may help. Contact your doctor if the problem does not go away or is severe. Prednisone Oral tablet What is this medicine? PREDNISONE (PRED ni sone) is a corticosteroid. It is commonly used to treat inflammation of the skin, joints, lungs, and other organs. Common conditions treated include asthma, allergies, and arthritis. It is also used for other conditions, such as blood disorders and diseases of the adrenal glands. How should I use this medicine? Take this medicine by mouth with a glass of water. Follow the directions on the prescription label. Take this medicine with food. If you are taking this medicine once a day, take it in the morning. Do not take more medicine than you are told to take. Do not suddenly stop taking your medicine because you may develop a severe reaction. Your doctor will tell you how much medicine to take. If your doctor wants you to stop the medicine, the dose may be slowly lowered over time to avoid any side effects. Talk to your aircraft pneudraulics repairer regarding the use of this medicine in children. Special care may be needed. What side effects may I notice from receiving this medicine? Side effects that you should report to your doctor or health healthcare risk control consultant as soon as possible: allergic reactions like skin rash, itching or hives, swelling of the face, lips, or tongue changes in emotions or moods changes in vision depressed mood eye pain fever or chills, cough, sore throat, pain or difficulty passing urine increased thirst swelling of ankles, feet Side effects that usually do not require medical attention (report to your doctor or health healthcare risk control consultant if they continue or are bothersome): confusion, excitement, restlessness headache nausea, vomiting skin problems, acne, thin and shiny skin trouble sleeping weight gain What may interact with this medicine? Do not take this medicine with any of the following medications: metyrapone mifepristone This medicine may also interact with the following medications: aminoglutethimide amphotericin B aspirin and aspirin-like medicines barbiturates certain medicines for diabetes, like glipizide or glyburide cholestyramine cholinesterase inhibitors cyclosporine digoxin diuretics ephedrine female hormones, like estrogens and control pills isoniazid ketoconazole NSAIDS, medicines for pain and inflammation, like ibuprofen or naproxen phenytoin rifampin toxoids vaccines warfarin What if I miss a dose? If you miss a dose, take it as soon as you can. If it is almost time for your next dose, talk to your doctor or health healthcare risk control consultant. You may need to miss a dose or take an extra dose. Do not take double or extra doses without advice. Where should I keep my medicine? Keep out of the reach of children. Store at room temperature between 15 and 30 degrees C (59 and 86 degrees F). Protect from light. Keep container tightly closed. Throw away any unused medicine after the expiration date. What should I tell my health care provider before I take this medicine? They need to know if you have any of these conditions: Trent's syndrome diabetes glaucoma heart disease high blood pressure infection (especially a virus infection such as chickenpox, cold sores, or herpes) kidney disease liver disease mental illness myasthenia gravis osteoporosis seizures stomach or intestine problems thyroid disease an unusual or allergic reaction to lactose, prednisone, other medicines, foods, dyes, or preservatives or trying to get breast-feeding What should I watch for while using this medicine? Visit your doctor or health healthcare risk control consultant for regular checks on your progress. If you are taking this medicine over a prolonged period, carry an identification card with your name and address, the type and dose of your medicine, and your doctor's name and address. This medicine may increase your risk of getting an infection. Tell your doctor or health healthcare risk control consultant if you are around anyone with measles or chickenpox, or if you develop sores or blisters that do not heal properly. If you are going to have surgery, tell your doctor or health healthcare risk control consultant that you have taken this medicine within the last twelve months. Ask your doctor or health healthcare risk control consultant about your diet. You may need to lower the amount of salt you eat. This medicine may affect blood sugar levels. If you have diabetes, check with your doctor or health healthcare risk control consultant before you change your diet or the dose of your diabetic medicine. You have been given the following additional information: Irritable Bowel Syndrome Ulcerative Colitis Diet, Wise (Adult) Ondansetron Oral disintegrating tablet Metronidazole Oral tablet Hydrocodone Bitartrate, Acetaminophen Oral tablet Dicyclomine Hydrochloride Oral tablet Prednisone Oral tablet Do not work tomorrow, for two days. (Electronically signed by Jennifer Martin A.R.N.P. 12/18/2016 18:38)
--- NOTE | 2016-12-18 18:38 | ED DISCHARGE INSTRUCTIONS ---
Patient: RENATA CALDWELL General Instructions [facility] VisitID: [id number] [place] [address] 36y, M Registration Date/Time: 12/18/2016 Acute inflammatory colitis; infectious colitis. INSTRUCTIONS Do not work tomorrow, for two days. Warnings: Further evaluation is necessary in order to assess the possibility of serious illness. It is very important to follow up with a physician. GENERAL WARNINGS: Return or contact your physician immediately if your condition worsens or changes unexpectedly, if not improving as expected, or if other problems arise. SPECIFICALLY, return if you develop pain in the abdomen, fever, the inability to keep fluids down, blood in vomitus, blood in diarrhea, fainting or lightheadedness. Prescription Medications: Zofran 4 mg: Take 1 orally every six hours as needed for nausea/vomiting. Dispense ten (10). No refills. Substitution is permissible. Flagyl 500 mg: Take 1 tablet orally every 12 hours for 7 days. No refill. Substitution is permissible. Clemons 5 mg / 325 mg tablets: take 1 to 2 orally every 6 hours as needed for pain. Dispense fifteen (15). No refills. Substitution is permissible. Bentyl 20 mg tablets: take 1 orally every 6 hours as needed. Dispense thirty (30). No refills. Substitution is permissible. Prednisone 20 mg: take 3 orally every day for 5 days. Dispense fifteen (15). No refills. Follow-up: Follow up with your doctor tomorrow even if well. Call for an appointment. Summary of care provided to patient. Screening today revealed the patient's blood pressure to be in the hypertensive range. The patient should follow up with a primary care provider for blood pressure management. Understanding of the discharge instructions verbalized by patient. Follow-up with: Antoine Wellington MD, Gastroenterology, , [address] [place], [place] [address]., , [place], [address]; Fredo Piper MD, Gastroenterology, , [facility], [address], [place], [address]; Shirin Correa MD, Gastroenteroloy, , [address] [place], [place] [address]., [address], [place], [address]; Sammy Hemphill MD, Gastroenteroloy, , [address], [place], [address]; Aminta Irwin MD, Gastroenteroloy, , [address], [place], [address] Follow up tomorrow in about days even if well. Call for an appointment. Summary of care provided to patient and family. ADDITIONAL INFORMATION Irritable Bowel Syndrome Irritable Bowel Syndrome (IBS) is a disorder of the intestines. It causes one of three patterns of symptoms: Chronic abdominal pain and constipation (spastic colitis) Recurring episodes of diarrhea, with or without pain Alternating diarrhea and constipation The cause of IBS is not known. Symptoms are usually mild and can be controlled by learning to manage stress and making changes in your diet and lifestyle. These include: Constipation may be avoided by increasing fiber in your diet. Fiber supplements, psyllium (Metamucil) or methylcellulose (Citrucel) with extra fluids are also helpful. Diarrhea can be treated with careful use of tywz-foa-oaspdec medicines such as loperamide (Imodium). Bloating or passing excess gas may be controlled by limiting your intake of carbonated beverages, salads, raw fruits and vegetables, cabbage, broccoli and cauliflower. Stress often benefits from counseling as well as self-help measures such as exercise, yoga, and meditation. More severe symptoms may require prescription medicine. Depression can be a component of this illness and antidepressant medicine may be prescribed. This may actually help with diarrhea, constipation, cramping as well as symptoms of depression. Intestinal cramping may benefit from anticholinergic medicine. Home Care: Look for factors that seem to worsen your symptoms such as stress and emotions, rapid or irregular eating habits, overuse of laxatives or enemas. Certain foods such as fatty foods, fried foods, caffeine, and dairy products may worsen your symptoms. Keep a food log to figure out what you are sensitive to. If you have constipation, putting more fiber into your diet will help. Foods high in fiber include fresh fruits and peelings you can eat, raw or lightly cooked vegetables, whole grain cereals, nuts, dried beans and peas. Bran is also a very good source of fiber. If severe stress is a factor in your life and self help methods are not working, talk to your doctor about ways to manage stress. Follow Up with your doctor or as directed by our staff if you do not begin to improve over the next 2-3 days. Get Prompt Medical Attention if any of the following occur: Increase in abdominal pain Constant abdominal pain that moves to the right-lower abdomen Persistent vomiting (can't keep liquids down) Excessive diarrhea Blood in your stool (red or black color) or mucus in your stool Feeling very weak or dizzy, fainting or extreme thirst Fever of 100.4F (38C) or higher, or as directed by your healthcare provider Ulcerative Colitis You have been diagnosed with ulcerative colitis. Ulcerative colitis is inflammation that occurs in the rectum and colon. It is a form of Inflammatory Bowel Disease (IBD). No one knows what causes IBD, but the symptoms can be treated and people with IBD can lead full, active lives. Home Care: Follow the diet that was prescribed for you by your doctor. Avoid any foods that make your symptoms worse. These foods vary from person to person. Keep a diary of foods that disagree with you, and share this information with your doctor or apprentice pattern maker. Take your medications as directed. Follow Up with your doctor or as advised by our staff. Report any unintended weight loss over 10 pounds over 3-6 months to your doctor. Get Prompt Medical Attention if any of the following occur: Bleeding from your rectum Frequent diarrhea or abdominal pain not controlled by your medicine Bloody diarrhea Fever of 100.4F (38C) or higher, or as directed by your healthcare provider Persistent nausea or repeated vomiting [place] Diet A bland diet is used for patients with an upset stomach. It consists of foods that are mild and easy to digest. It is better to eat small frequent meals rather than three large meals a day. BEVERAGES OK: Fruit juices, non-caffeinated teas and coffee, non-carbonated aragon AVOID: Carbonated beverage, caffeinated tea and coffee, all alcoholic beverages BREAD OK: Refined white, wheat or rye bread, avery or soda crackers, [place] toast, plain rolls, bagels AVOID: Whole-grain bread CEREAL OK: Refined cereals: cooked or ready to eat AVOID: Whole grain cereals and granola, or those containing bran, seeds or nuts DESSERTS OK: Peanut butter and all others except those to "avoid" AVOID: Chocolate, cocoa, coconut, popcorn, nuts, seeds, jam, marmalade FRUITS OK: Canned, cooked, frozen or fresh fruits without seeds or tough skin AVOID: Olives, skin and seeds of fruit MEATS OK: All fresh or preserved meat, fish and fowl AVOID: Any that are prepared with those spices to "avoid" CHEESE & EGGS OK: Eggs, cottage cheese, cream cheese, other cheeses AVOID: All cheeses made with those spices to "avoid" POTATOES & PASTA OK: Potato, rice, macaroni, noodles, spaghetti AVOID: None SOUPS OK: All soups without heavy seasoning AVOID: Soups made with those spices to "avoid" VEGETABLES OK: Canned, cooked, fresh or frozen mildly flavored vegetables without seeds, skins or coarse fiber AVOID: Vegetables prepared with those spices to "avoid"; skin and seeds of vegetables and those with coarse fiber SPICES OK: Salt, lemon and robinson juice, vinegar, all extracts, ryley, cinnamon, thyme, mace, allspice, paprika AVOID: Hoople powder, cloves, pepper, seed spices, garlic, gravy pickles, highly seasoned salad dressings Ondansetron Oral disintegrating tablet What is this medicine? ONDANSETRON (on LISA se lena) is used to treat nausea and vomiting caused by chemotherapy. It is also used to prevent or treat nausea and vomiting after surgery. How should I use this medicine? These tablets are made to dissolve in the mouth. Do not try to push the tablet through the foil backing. With dry hands, peel away the foil backing and gently remove the tablet. Place the tablet in the mouth and allow it to dissolve, then swallow. While you may take these tablets with water, it is not necessary to do so. Talk to your linotyper regarding the use of this medicine in children. Special care may be needed. What side effects may I notice from receiving this medicine? Side effects that you should report to your doctor or health critical care registered nurse as soon as possible: allergic reactions like skin rash, itching or hives, swelling of the face, lips, or tongue breathing problems dizziness fast or irregular heartbeat feeling faint or lightheaded, falls fever and chills swelling of the hands and feet tightness in the chest Side effects that usually do not require medical attention (report to your doctor or health critical care registered nurse if they continue or are bothersome): constipation or diarrhea headache What may interact with this medicine? Do not take this medicine with any of the following medications: -apomorphine -cisapride -dofetilide -dronedarone -pimozide -thioridazine -ziprasidone This medicine may also interact with the following medications: -carbamazepine -phenytoin -rifampicin -tramadol -other medicines that prolong the QT interval (cause an abnormal heart rhythm) What if I miss a dose? If you miss a dose, take it as soon as you can. If it is almost time for your next dose, take only that dose. Do not take double or extra doses. Where should I keep my medicine? Keep out of the reach of children. Store between 2 and 30 degrees C (36 and 86 degrees F). Throw away any unused medicine after the expiration date. What should I tell my health care provider before I take this medicine? They need to know if you have any of these conditions: heart disease history of irregular heartbeat liver disease low levels of magnesium or potassium in the blood an unusual or allergic reaction to ondansetron, granisetron, other medicines, foods, dyes, or preservatives or trying to get breast-feeding What should I watch for while using this medicine? Check with your doctor or health critical care registered nurse as soon as you can if you have any sign of an allergic reaction. Metronidazole Oral tablet What is this medicine? METRONIDAZOLE (me troe NI da zole) is an antiinfective. It is used to treat certain kinds of bacterial and protozoal infections. It will not work for colds, flu, or other viral infections. How should I use this medicine? Take this medicine by mouth with a full glass of water. Follow the directions on the prescription label. Take your medicine at regular intervals. Do not take your medicine more often than directed. Take all of your medicine as directed even if you think you are better. Do not skip doses or stop your medicine early. Talk to your linotyper regarding the use of this medicine in children. Special care may be needed. What side effects may I notice from receiving this medicine? Side effects that you should report to your doctor or health critical care registered nurse as soon as possible: allergic reactions like skin rash or hives, swelling of the face, lips, or tongue confusion, clumsiness difficulty speaking discolored or sore mouth dizziness fever, infection numbness, tingling, pain or weakness in the hands or feet trouble passing urine or change in the amount of urine redness, blistering, peeling or loosening of the skin, including inside the mouth seizures unusually weak or tired vaginal irritation, dryness, or discharge Side effects that usually do not require medical attention (report to your doctor or health critical care registered nurse if they continue or are bothersome): diarrhea headache irritability metallic taste nausea stomach pain or cramps trouble sleeping What may interact with this medicine? Do not take this medicine with any of the following medications: alcohol or any product that contains alcohol amprenavir oral solution cisapride disulfiram dofetilide dronedarone paclitaxel injection pimozide ritonavir oral solution sertraline oral solution sulfamethoxazole-trimethoprim injection thioridazine ziprasidone This medicine may also interact with the following medications: cimetidine lithium other medicines that prolong the QT interval (cause an abnormal heart rhythm) phenobarbital phenytoin warfarin What if I miss a dose? If you miss a dose, take it as soon as you can. If it is almost time for your next dose, take only that dose. Do not take double or extra doses. Where should I keep my medicine? Keep out of the reach of children. Store at room temperature below 25 degrees C (77 degrees F). Protect from light. Keep container tightly closed. Throw away any unused medicine after the expiration date. What should I tell my health care provider before I take this medicine? They need to know if you have any of these conditions: anemia or other blood disorders disease of the nervous system fungal or yeast infection if you drink alcohol containing drinks liver disease seizures an unusual or allergic reaction to metronidazole, or other medicines, foods, dyes, or preservatives or trying to get breast-feeding What should I watch for while using this medicine? Tell your doctor or health critical care registered nurse if your symptoms do not improve or if they get worse. You may get drowsy or dizzy. Do not drive, use machinery, or do anything that needs mental alertness until you know how this medicine affects you. Do not stand or sit up quickly, especially if you are an older patient. This reduces the risk of dizzy or fainting spells. Avoid alcoholic drinks while you are taking this medicine and for three days afterward. Alcohol may make you feel dizzy, sick, or flushed. If you are being treated for a sexually transmitted disease, avoid sexual contact until you have finished your treatment. Your sexual partner may also need treatment. Hydrocodone Bitartrate, Acetaminophen Oral tablet What is this medicine? ACETAMINOPHEN; HYDROCODONE (a set a LESLIE dewey fen; kareen droe KOE done) is a pain reliever. It is used to treat mild to moderate pain. How should I use this medicine? Take this medicine by mouth. Swallow it with a full glass of water. Follow the directions on the prescription label. If the medicine upsets your stomach, take the medicine with food or milk. Do not take more than you are told to take. Talk to your linotyper regarding the use of this medicine in children. This medicine is not approved for use in children. What side effects may I notice from receiving this medicine? Side effects that you should report to your doctor or health critical care registered nurse as soon as possible: allergic reactions like skin rash, itching or hives, swelling of the face, lips, or tongue breathing problems confusion feeling faint or lightheaded, falls stomach pain yellowing of the eyes or skin Side effects that usually do not require medical attention (report to your doctor or health critical care registered nurse if they continue or are bothersome): nausea, vomiting stomach upset What may interact with this medicine? alcohol antihistamines isoniazid medicines for depression, anxiety, or psychotic disturbances medicines for sleep muscle relaxants naltrexone narcotic medicines (opiates) for pain phenobarbital ritonavir tramadol What if I miss a dose? If you miss a dose, take it as soon as you can. If it is almost time for your next dose, take only that dose. Do not take double or extra doses. Where should I keep my medicine? Keep out of the reach of children. This medicine can be abused. Keep your medicine in a safe place to protect it from theft. Do not share this medicine with anyone. Selling or giving away this medicine is dangerous and against the law. Store at room temperature between 15 and 30 degrees C (59 and 86 degrees F). Protect from light. Keep container tightly closed. Throw away any unused medicine after the expiration date. Discard unused medicine and used packaging carefully. Pets and children can be harmed if they find used or lost packages. What should I tell my health care provider before I take this medicine? They need to know if you have any of these conditions: brain tumor Crohn's disease, inflammatory bowel disease, or ulcerative colitis drink more than 3 alcohol-containing drinks per day drug abuse or addiction head injury heart or circulation problems kidney disease or problems going to the bathroom liver disease lung disease, asthma, or breathing problems an unusual or allergic reaction to acetaminophen, hydrocodone, other opioid analgesics, other medicines, foods, dyes, or preservatives or trying to get breast-feeding What should I watch for while using this medicine? Tell your doctor or health critical care registered nurse if your pain does not go away, if it gets worse, or if you have new or a different type of pain. You may develop tolerance to the medicine. Tolerance means that you will need a higher dose of the medicine for pain relief. Tolerance is normal and is expected if you take the medicine for a long time. Do not suddenly stop taking your medicine because you may develop a severe reaction. Your body becomes used to the medicine. This does NOT mean you are addicted. Addiction is a behavior related to getting and using a drug for a non-medical reason. If you have pain, you have a medical reason to take pain medicine. Your doctor will tell you how much medicine to take. If your doctor wants you to stop the medicine, the dose will be slowly lowered over time to avoid any side effects. You may get drowsy or dizzy when you first start taking the medicine or change doses. Do not drive, use machinery, or do anything that may be dangerous until you know how the medicine affects you. Stand or sit up slowly. There are different types of narcotic medicines (opiates) for pain. If you take more than one type at the same time, you may have more side effects. Give your health care provider a list of all medicines you use. Your doctor will tell you how much medicine to take. Do not take more medicine than directed. Call emergency for help if you have problems breathing. The medicine will cause constipation. Try to have a bowel movement at least every 2 to 3 days. If you do not have a bowel movement for 3 days, call your doctor or health critical care registered nurse. Too much acetaminophen can be very dangerous. Do not take Tylenol (acetaminophen) or medicines that contain acetaminophen with this medicine. Many non-prescription medicines contain acetaminophen. Always read the labels carefully. Dicyclomine Hydrochloride Oral tablet What is this medicine? DICYCLOMINE (dye NOAH hansen) is used to treat bowel problems including irritable bowel syndrome. How should I use this medicine? Take this medicine by mouth with a glass of water. Follow the directions on the prescription label. It is best to take this medicine on an empty stomach, 30 minutes to 1 hour before meals. Take your medicine at regular intervals. Do not take your medicine more often than directed. Talk to your linotyper regarding the use of this medicine in children. Special care may be needed. While this drug may be prescribed for children as young as 6 months of age for selected conditions, precautions do apply. Patients over 65 years old may have a stronger reaction and need a smaller dose. What side effects may I notice from receiving this medicine? Side effects that you should report to your doctor or health critical care registered nurse as soon as possible: agitation, nervousness, confusion difficulty swallowing dizziness, drowsiness fast or slow heartbeat hallucinations pain or difficulty passing urine Side effects that usually do not require medical attention (report to your doctor or health critical care registered nurse if they continue or are bothersome): constipation headache nausea or vomiting sexual difficulty What may interact with this medicine? amantadine antacids benztropine digoxin disopyramide medicines for allergies, colds and breathing difficulties medicines for alzheimer's disease medicines for anxiety or sleeping problems medicines for depression or psychotic disturbances medicines for diarrhea medicines for pain metoclopramide tegaserod What if I miss a dose? If you miss a dose, take it as soon as you can. If it is almost time for your next dose, take only that dose. Do not take double or extra doses. Where should I keep my medicine? Keep out of the reach of children. Store at room temperature below 30 degrees C (86 degrees F). Protect from light. Throw away any unused medicine after the expiration date. What should I tell my health care provider before I take this medicine? They need to know if you have any of these conditions: difficulty passing urine esophagus problems or heartburn glaucoma heart disease, or previous heart attack myasthenia gravis prostate trouble stomach infection, or obstruction ulcerative colitis an unusual or allergic reaction to dicyclomine, other medicines, foods, dyes, or preservatives or trying to get breast-feeding What should I watch for while using this medicine? You may get drowsy, dizzy, or have blurred vision. Do not drive, use machinery, or do anything that needs mental alertness until you know how this medicine affects you. To reduce the risk of dizzy or fainting spells, do not sit or stand up quickly, especially if you are an older patient. Alcohol can make you more drowsy, avoid alcoholic drinks. Stay out of bright light and wear sunglasses if this medicine makes your eyes more sensitive to light. Avoid extreme heat (hot tubs, saunas). This medicine can cause you to sweat less than normal. Your body temperature could increase to dangerous levels, which may lead to heat stroke. Antacids can stop this medicine from working. If you get an upset stomach and want to take an antacid, make sure there is an interval of at least 1 to 2 hours before or after you take this medicine. Your mouth may get dry. Chewing sugarless gum or sucking hard candy, and drinking plenty of water may help. Contact your doctor if the problem does not go away or is severe. Prednisone Oral tablet What is this medicine? PREDNISONE (PRED ni sone) is a corticosteroid. It is commonly used to treat inflammation of the skin, joints, lungs, and other organs. Common conditions treated include asthma, allergies, and arthritis. It is also used for other conditions, such as blood disorders and diseases of the adrenal glands. How should I use this medicine? Take this medicine by mouth with a glass of water. Follow the directions on the prescription label. Take this medicine with food. If you are taking this medicine once a day, take it in the morning. Do not take more medicine than you are told to take. Do not suddenly stop taking your medicine because you may develop a severe reaction. Your doctor will tell you how much medicine to take. If your doctor wants you to stop the medicine, the dose may be slowly lowered over time to avoid any side effects. Talk to your linotyper regarding the use of this medicine in children. Special care may be needed. What side effects may I notice from receiving this medicine? Side effects that you should report to your doctor or health critical care registered nurse as soon as possible: allergic reactions like skin rash, itching or hives, swelling of the face, lips, or tongue changes in emotions or moods changes in vision depressed mood eye pain fever or chills, cough, sore throat, pain or difficulty passing urine increased thirst swelling of ankles, feet Side effects that usually do not require medical attention (report to your doctor or health critical care registered nurse if they continue or are bothersome): confusion, excitement, restlessness headache nausea, vomiting skin problems, acne, thin and shiny skin trouble sleeping weight gain What may interact with this medicine? Do not take this medicine with any of the following medications: metyrapone mifepristone This medicine may also interact with the following medications: aminoglutethimide amphotericin B aspirin and aspirin-like medicines barbiturates certain medicines for diabetes, like glipizide or glyburide cholestyramine cholinesterase inhibitors cyclosporine digoxin diuretics ephedrine female hormones, like estrogens and control pills isoniazid ketoconazole NSAIDS, medicines for pain and inflammation, like ibuprofen or naproxen phenytoin rifampin toxoids vaccines warfarin What if I miss a dose? If you miss a dose, take it as soon as you can. If it is almost time for your next dose, talk to your doctor or health critical care registered nurse. You may need to miss a dose or take an extra dose. Do not take double or extra doses without advice. Where should I keep my medicine? Keep out of the reach of children. Store at room temperature between 15 and 30 degrees C (59 and 86 degrees F). Protect from light. Keep container tightly closed. Throw away any unused medicine after the expiration date. What should I tell my health care provider before I take this medicine? They need to know if you have any of these conditions: Trent's syndrome diabetes glaucoma heart disease high blood pressure infection (especially a virus infection such as chickenpox, cold sores, or herpes) kidney disease liver disease mental illness myasthenia gravis osteoporosis seizures stomach or intestine problems thyroid disease an unusual or allergic reaction to lactose, prednisone, other medicines, foods, dyes, or preservatives or trying to get breast-feeding What should I watch for while using this medicine? Visit your doctor or health critical care registered nurse for regular checks on your progress. If you are taking this medicine over a prolonged period, carry an identification card with your name and address, the type and dose of your medicine, and your doctor's name and address. This medicine may increase your risk of getting an infection. Tell your doctor or health critical care registered nurse if you are around anyone with measles or chickenpox, or if you develop sores or blisters that do not heal properly. If you are going to have surgery, tell your doctor or health critical care registered nurse that you have taken this medicine within the last twelve months. Ask your doctor or health critical care registered nurse about your diet. You may need to lower the amount of salt you eat. This medicine may affect blood sugar levels. If you have diabetes, check with your doctor or health critical care registered nurse before you change your diet or the dose of your diabetic medicine. You have been given the following additional information: Irritable Bowel Syndrome Ulcerative Colitis Diet, [place] (Adult) Ondansetron Oral disintegrating tablet Metronidazole Oral tablet Hydrocodone Bitartrate, Acetaminophen Oral tablet Dicyclomine Hydrochloride Oral tablet Prednisone Oral tablet Do not work tomorrow, for two days. (Electronically signed by Jennifer Martin A.R.N.P. 12/18/2016 18:38)
--- NOTE | 2016-12-18 18:38 | ED MAR SUMMARY ---
..... Medication Administration Record [facility] [address], [place] [address] Patient: RENATA CALDWELL Visit ID: [id number] 36y, M Weight: 110.6 kg Height/Length: 73 in BMI: 32.2 ALLERGIES: None Start 12:29 12/18/2016 Paulette Gonzalez R.N., Stop 13:30 12/18/2016 Paulette Gonzalez R.N. Medication Administered: IV NS (SALINE), Dose: IV Fluids over 1 hour(s), Rate: 1000 mL/hr, Dispensed: 1000 mL bag, Site: #1 left AC. Medication Ordered: IV NS : initial bolus none -, then 1000 mL/hr (NOW). Given 12:41 12/18/2016 Paulette Gonzalez R.N. Medication Administered: TORADOL [IVP], Dose: 30 mg IVP over 1 minute(s), Site: #1 left AC. Medication Ordered: Toradol IV 30 mg (NOW). Given 12:12/18/2016 Paulette Gonzalez R.N. Medication Administered: ZOFRAN [IVP] (ONDANSETRON HCL), Dose: 4 mg IVP over 1 minute(s), Site: #1 left AC. Medication Ordered: Zofran IV 4 mg (NOW). Given 14:00 12/18/2016 Paulette Gonzalez R.N. Medication Administered: DILAUDID [IVP] (HYDROMORPHONE HCL PF), Dose: 1 mg IVP over 2 minute(s), Site: #1 left AC. Medication Ordered: Dilaudid IV 1 mg (HIGH ALERT MEDICATION, NOW). Given 14:29 12/18/2016 Paulette Gonzalez R.N. Medication Administered: DECADRON [IVP], Dose: 10 mg IVP over 2 minute(s), Site: #1 left AC. Medication Ordered: Decadron IV 10 mg (NOW). Start 14:30 12/18/2016 Paulette Gonzalez R.N., Stop 15:20 12/18/2016 Paulette Gonzalez R.N. Medication Administered: IV NS (SALINE), Dose: IV Fluids over 1 hour(s), Rate: 500 mL/hr, Dispensed: 500 mL bag, Site: #1 left AC. Medication Ordered: IV NS : initial bolus none -, then 1000 mL/hr (NOW). Start 14:30 12/18/2016 Paulette Gonzalez, R.N., Stop 15:45 12/18/2016 Bobby Galdamez RTristanN. Medication Administered: FLAGYL [IVPB] (METRONIDAZOLE IN NACL), Dose: 500 mg IVPB over 1 hour(s), Rate: 100 mL/hr, Dispensed: 100 mL bag, Site: #1 left AC. Medication Ordered: Flagyl IV 500 mg/100mL (NOW). Given 15:20 12/18/2016 Paulette Gonzalez, RTristanN. Medication Administered: DILAUDID [IVP] (HYDROMORPHONE HCL PF), Dose: 1 mg IVP over 1 minute(s), Site: #1 left AC. Medication Ordered: Dilaudid IV 1 mg (HIGH ALERT MEDICATION, NOW).
== END 2016-12-18 15:59 | disposition home or self-care (01) ==
LOC: ED SRH 11:36
DX: A09 Infectious gastroenteritis and colitis, unspecified (principal)
CPT/HCPCS: 90004; 90100; 91643; 92235; 92530; 95059

== ENCOUNTER 2016-12-20 20:08 | Emergency (ER) | payer OTHER ==
--- NOTE | 2016-12-20 23:19 | ED CLINICAL REPORT ---
Clinical Report - Physicians/Mid Levels [facility] [address] [place] [address] 12/20/2016 20:08 Patient: RENATA CALDWELL *This is a preliminary document and is subject to change Time Seen: 21:00; initial patient contact. PAST HISTORY Colitis. Corneal Foreign Body. SURGERIES: Back Surgery. Dental Surger. SOCIAL HISTORY Never smoker. Occasional alcohol use. No drug use. LABS, X-RAYS, AND EKG Laboratory Tests: UA-Culture if indicated: (JOEL: 12/20/2016 21:54) ( [facility] 12/20/2016 22:30) Final results Test Result Flag Units (Reference) URINE COLOR STRAW URINE APPEARANCE CLEAR URINE GLUCOSE NEGATIVE (NEGATIVE) URINE BILIRUBIN NEGATIVE (NEGATIVE) URINE KETONE NEGATIVE (NEGATIVE) URINE SPECIFIC GRAVITY 1.010 (1.010-1.030) URINE PH 6.0 (5.0-8.0) URINE PROTEIN NEGATIVE (NEGATIVE) URINE UROBILINOGEN 0.2 EU/dL (0.2-1.0) URINE NITRITE NEGATIVE (NEGATIVE) URINE BLOOD TRACE-INTACT (NEGATIVE) URINE LEUK ESTERASE NEGATIVE (NEGATIVE) URINE RBC NONE SEEN rbc/hpf (0-1) URINE WBC NONE SEEN wbc/hpf (0-1) URINE EPITHELIAL CELLS NONE SEEN EPI/hpf (0-5) URINE BACTERIA NONE SEEN (NONE SEEN) URINE COMMENT CULT NOT INDICATED URINE CULTURES ARE SET-UP BASED ON THE FOLLOWING CRITERIA:POSITIVE NITRITEPOSITIVE LEUKOCYTE ESTERASEGREATER THAN 10 WHITE BLOOD CELLSMODERATE (2+) OR GREATER BACTERIA CBC w Diff: (JOEL: 12/20/2016 21:14) ( MsgRcvd 12/20/2016 22:39) Final results Test Result Flag Units (Reference) WHITE BLOOD COUNT 9.2 K/uL (4.5-11.5) RED BLOOD COUNT 6.27 *H M/uL (4.50-5.90) CALLED TO SUZANNE BAUTISTA, ER @ [id number] IDENTIFIERS APPLIED.CALLED BACK THE RESULT. HEMOGLOBIN 18.2 H gm/dL (13.5-17.5) HEMATOCRIT 54.8 H % (41.0-53.0) MEAN CELL VOLUME 87 fL (80-100) MEAN CORPUSCULAR HGB 29 pg (26-34) MEAN CORPUSCULAR HGB CONC 33 g/dL (31-37) RED CELL DISTRIBUTION WIDTH 13.8 % (11.6-14.8) PLATELET COUNT 228 K/uL (150-400) NEUTROPHIL % 82.0 H % (50-75) LYMPH % 12.1 L % (25-40) MONO % 5.6 % (3-14) EOSINOPHIL % 0 % (0-4) BASOPHIL % 0.3 % (0-2) CMP: (JOEL: 12/20/2016 21:14) ( MsgRcvd 12/20/2016 21:41) Final results Test Result Flag Units (Reference) GLUCOSE 94 mg/dL (70-110) BUN 21 H mg/dL (7-18) CREATININE 1.2 mg/dL (0.6-1.3) Estimated GFR >60 mL/min Estimated GFR- >60 mL/min Note: Persistent reduction over 3 months in eGFR<60 mL/min/1.73 m2 defines CKD. Patients with eGFR values>=60 mL/min/1.73 m2 may also have CKD if evidence ofpersistent proteinuria. Additional information may be foundat www.kidney.org. SODIUM 138 mmol/L (136-145) POTASSIUM 4.5 mmol/L (3.5-5.1) CHLORIDE 100 mmol/L (98-107) CARBON DIOXIDE 32 mmol/L (21-32) CALCIUM 8.8 mg/dL (8.5-10.1) TOTAL PROTEIN 7.5 g/dL (6.4-8.2) ALBUMIN 4.2 g/dL (3.3-5.0) BILIRUBIN, TOTAL 0.5 mg/dL (0.0-1.0) ALKALINE PHOSPHATASE 55 U/L (46-116) AST (SGOT) 23 U/L (15-37) ALT (SGPT) 58 U/L (12-78) LIPASE 121 U/L (73-393) AMYLASE 53 U/L (25-115) . CLINICAL IMPRESSION Constipation Moderate acquired polycythemia. INSTRUCTIONS Drink plenty of fluids. Your Current Medications: CONTINUE TAKING THE FOLLOWING MEDICATIONS: PredniSONE Oral : daily. Vicodin Oral : Tablet 5-300 mg, 2 tablets 4x a day, prn. Prescription Medications: Bentyl 20 mg tablets: take 1 orally every 6 hours as needed for abdominal cramps or abdominal discomfort. Dispense thirty (30). No refill. Substitution is permissible. Follow-up: Follow up with your doctor in about two days. Call for an appointment. Jean Macias Dr.
--- NOTE | 2016-12-20 23:19 | ED ORDER SUMMARY ---
..... Patient: RENATA CALDWELL OrderSheet [facility] VisitID: [id number] [place] [address] 36y, M Registration Date/Time: 12/20/2016 ORDER SHEET Weight: 108.8 kg (stated) Allergies: None GENERAL ORDERS: CBC w Diff Urgent (21:10 12/20/2016 Ashley Adler) (Ack 21:13 AMcQuoid ER Tech1) (21:16 KPage-Kuchan R.N.) CMP Urgent (21:10 12/20/2016 Ashley Adler) (Ack 21:13 AMcQuoid ER Tech1) (21:16 KPage-Kuchan R.N.) UA-Culture if indicated Urgent (21:12/20/2016 Ashley Adler) (Ack 21:13 AMcQuoid ER Tech1) Amylase Urgent (21:12/20/2016 Ashley Adler) (Ack 21:13 AMcQuoid ER Tech1) (21:16 KPage-Kuchan R.N.) Lipase Urgent (21:10 12/20/2016 Ashley Adler) (Ack 21:13 AMcQuoid ER Tech1) (21:16 KPage-Kuchan R.N.) Abdomen 1V Urgent (22:35 12/20/2016 Ashley Adler) (Ack 22:36 AMcQuoid ER Tech1) (22:51 MCampbell) MEDICATION ORDERS: Bentyl PO 40 mg (NOW) (21:12/20/2016 Ashley Adler) (21:25 KPage-Kuchan R.N.) IV FLUIDS: IV NS : initial bolus none -, then 1000 mL/hr for X1 (NOW) (21:12/20/2016 Ashley Adler) (21:24 KPaoneida-Jacyn R.N.) Toradol IV 30 mg (NOW) (21:12/20/2016 Ashley Adler) (21:24 KPage-Kuchan R.N.) Zofran IV 4 mg (NOW) (21:12/20/2016 Ashley Adler) (21:25 KPage-Kuchan R.N.) ORDER SHEET NOTES: This document has not been locked and should not be saved in the medical record.
--- NOTE | 2016-12-20 23:19 | ED NURSING NOTES ---
Clinical Report - Nurses [facility] [address] [place] [address] 12/20/2016 20:08 Patient: RENATA CALDWELL TRIAGE Triage time 20:33. Acuity: LEVEL 3. Chief Complaint: ABDOMINAL PAIN and NAUSEA. --20:39 Celia Alvarado R.N. 20:33 12/20/16. BP: 162/110. HR: 70 (regular and normal rate). RR: 18 (regular and labored). O2 saturation: 99% on room air. Temp: 98.3 F. Pain level now: 04/11. --20:39 Celia Alvarado R.N. Weight: 108.8 kg stated. Height/Length: 73 inches Per Patient. BMI: 31.7. --20:35 Celia Alvarado R.N. Medications Vicodin Oral (Tablet 5-300 mg) 2 tablets, 4x a day as needed. --20:36 Celia Alvarado R.N. PredniSONE Oral, daily. --20:36 Celia Alvarado R.N. Allergies None. --20:35 Celia Alvarado R.N. History Arrived by private vehicle. Historian: patient. Unaccompanied. Primary physician (none). Onset. (Monday). ( abd pain since Monday, seen on Monday here, not better, no BM since Monday, feels like he has to go but unable to. Nausea. no vomiting, eating very little). He has had constipation and abdominal pain. ( chills and hot flashes). PAST MEDICAL HX: Immunizations: up-to-date. SOCIAL HX: Smoker- current status unknown (chew). Alcohol use. (couple of months ago). No drug use. No recent travel. No infectious disease exposure. No known contact with a sick individual. ABUSE ASSESSMENT: No report of abuse. SELF HARM ASSESSMENT: A self harm assessment was performed. The patient answered "no" to the question "Have you recently felt down, depressed, or hopeless?", "Have you noticed less interest or pleasure in doing things?", "Do you have thoughts of harming or killing yourself?", "Are you here because you tried to hurt yourself?", "Have you ever tried to hurt yourself before today?", "Have you recently had thoughts about harming or killing others?" and "Do you have any dangerous items in your possession?". FALL RISK ASSESSMENT: Fall risk assessment completed. No fall risk identified. NUTRITIONAL RISK ASSESSMENT: The nutritional risk assessment revealed no deficiencies. FUNCTIONAL ASSESSMENT: Functional assessment: no impairments noted. LEARNING NEEDS ASSESSMENT: The learning needs assessment revealed no barriers. SKIN INTEGRITY ASSESSMENT: Skin integrity risk assessment completed. No skin integrity risk identified. --20:39 Celia Alvarado R.N. PROBLEMS: Colitis. Corneal Foreign Body. --20:36 Celia Alvarado R.N. ADDITIONAL SURGERIES: Back Surgery. Dental Surgery. --20:36 Celia Alvarado R.N. Interventions ID band on patient. --20:39 Celia Alvarado R.N. NURSING PROGRESS NOTES 21:14 12/20/2016 Site #1 started via IV in the right antecubital space with an 20g angiocath; one attempt. Blood drawn: rainbow set. Labeled in the presence of the patient and sent to the lab. Saline lock flushed with 10 mL saline. --21:24 Bridgette Ewing R.N. 21:19 12/20/2016 Started bag #1 1000 mL IV Fluids IV NS (Saline); at 1000 mL/hr via site #1 --21:24 Bridgette Ewing R.N. 21:20 12/20/2016 Bentyl (Dicyclomine HCl) PO 40 mg given. Allergies verified and confirmed 5 rights. --21:25 Bridgette Ewing R.N. 21:20 12/20/2016 Zofran (Ondansetron HCl) IVP 4 mg given. via site #1. Allergies verified and confirmed 5 rights. IV patency established. IV site checked: no pain, redness, or swelling. IV flushed thoroughly pre- and post-medication administration. IVP given by RN. --21:25 Bridgette Ewing R.N. 21:24 12/20/2016 Toradol IVP 30 mg given. via site #1. Allergies verified and confirmed 5 rights. IV patency established. IV site checked: no pain, redness, or swelling. IV flushed thoroughly pre- and post-medication administration. IVP given by RN. --21:24 Bridgette Ewing R.N. 22:36 12/20/2016 IV Fluids IV NS Discontinued: completed. Total amount infused: 1000 mL. IV patency established. IV site checked: no pain, redness, or swelling. IV flushed thoroughly. --23:36 Bridgette Ewing R.N. 22:37 12/20/16. Critical value received by Bridgette PALACIOS. Critical value read back. Verified lab result. Provider notifed of critical value (RBC 6.27 Dr Macias). Orders were not received. --23:09 Bridgette Ewing R.N. DISPOSITION / DISCHARGE Condition at departure: improved. No learning barriers present. Discharge instructions provided and reviewed with the patient. Reviewed medication(s) information. Prescription(s) given to the patient. The patient was discharged by the physician. He was discharged home. He left the Emergency Department ambulatory and via private vehicle. Patient driving. ( pt given rx and f/u and dc home. ambulatory to lobby with steady gait,). --23:35 Bridgette Ewing R.N. 23:34 12/20/16. BP: 148/91. HR: 68. RR: 17. O2 saturation: 100%. Temp: deferred. Pain level now: 12/10. --23:35 Bridgette Ewing R.N. Locked/Released at 12/21/2016 17:29 by Bridgette Ewing R.N.
--- NOTE | 2016-12-20 23:19 | ED ORDER SUMMARY ---
..... Patient: RENATA CALDWELL OrderSheet [facility] VisitID: [id number] [place] [address] 36y, M Registration Date/Time: 12/20/2016 ORDER SHEET Weight: 108.8 kg (stated) Allergies: None GENERAL ORDERS: CBC w Diff Urgent (21:10 12/20/2016 Ashley Adler) (Ack 21:13 AMcQuoid ER Tech1) (21:16 KPage-Kuchan R.N.) CMP Urgent (21:10 12/20/2016 Ashley Adler) (Ack 21:13 AMcQuoid ER Tech1) (21:16 KPage-Kuchan R.N.) UA-Culture if indicated Urgent (21:12/20/2016 Ashley Adler) (Ack 21:13 AMcQuoid ER Tech1) Amylase Urgent (21:12/20/2016 Ashley Adler) (Ack 21:13 AMcQuoid ER Tech1) (21:16 KPage-Kuchan R.N.) Lipase Urgent (21:10 12/20/2016 Ashley Adler) (Ack 21:13 AMcQuoid ER Tech1) (21:16 KPage-Kuchan R.N.) Abdomen 1V Urgent (22:35 12/20/2016 Ashley Adler) (Ack 22:36 AMcQuoid ER Tech1) (22:51 MCampbell) MEDICATION ORDERS: Bentyl PO 40 mg (NOW) (21:12/20/2016 Ashley Adler) (21:25 KPage-Kuchan R.N.) IV FLUIDS: IV NS : initial bolus none -, then 1000 mL/hr for X1 (NOW) (21:12/20/2016 Ashley Adler) (21:24 KPaoneida-Jacyn R.N.) Toradol IV 30 mg (NOW) (21:12/20/2016 Ashley Adler) (21:24 KPage-Kuchan R.N.) Zofran IV 4 mg (NOW) (21:12/20/2016 Ashley Adler) (21:25 KPage-Kuchan R.N.) ORDER SHEET NOTES: This document has not been locked and should not be saved in the medical record.
--- NOTE | 2016-12-20 23:19 | ED CLINICAL REPORT ---
Clinical Report - Physicians/Mid Levels [facility] [address] [place] [address] 12/20/2016 20:08 Patient: RENATA CALDWELL *This is a preliminary document and is subject to change Time Seen: 21:00; initial patient contact. PAST HISTORY Colitis. Corneal Foreign Body. SURGERIES: Back Surgery. Dental Surger. SOCIAL HISTORY Never smoker. Occasional alcohol use. No drug use. LABS, X-RAYS, AND EKG Laboratory Tests: UA-Culture if indicated: (JOEL: 12/20/2016 21:54) ( [facility] 12/20/2016 22:30) Final results Test Result Flag Units (Reference) URINE COLOR STRAW URINE APPEARANCE CLEAR URINE GLUCOSE NEGATIVE (NEGATIVE) URINE BILIRUBIN NEGATIVE (NEGATIVE) URINE KETONE NEGATIVE (NEGATIVE) URINE SPECIFIC GRAVITY 1.010 (1.010-1.030) URINE PH 6.0 (5.0-8.0) URINE PROTEIN NEGATIVE (NEGATIVE) URINE UROBILINOGEN 0.2 EU/dL (0.2-1.0) URINE NITRITE NEGATIVE (NEGATIVE) URINE BLOOD TRACE-INTACT (NEGATIVE) URINE LEUK ESTERASE NEGATIVE (NEGATIVE) URINE RBC NONE SEEN rbc/hpf (0-1) URINE WBC NONE SEEN wbc/hpf (0-1) URINE EPITHELIAL CELLS NONE SEEN EPI/hpf (0-5) URINE BACTERIA NONE SEEN (NONE SEEN) URINE COMMENT CULT NOT INDICATED URINE CULTURES ARE SET-UP BASED ON THE FOLLOWING CRITERIA:POSITIVE NITRITEPOSITIVE LEUKOCYTE ESTERASEGREATER THAN 10 WHITE BLOOD CELLSMODERATE (2+) OR GREATER BACTERIA CBC w Diff: (JOEL: 12/20/2016 21:14) ( MsgRcvd 12/20/2016 22:39) Final results Test Result Flag Units (Reference) WHITE BLOOD COUNT 9.2 K/uL (4.5-11.5) RED BLOOD COUNT 6.27 *H M/uL (4.50-5.90) CALLED TO SUZANNE BAUTISTA, ER @ [id number] IDENTIFIERS APPLIED.CALLED BACK THE RESULT. HEMOGLOBIN 18.2 H gm/dL (13.5-17.5) HEMATOCRIT 54.8 H % (41.0-53.0) MEAN CELL VOLUME 87 fL (80-100) MEAN CORPUSCULAR HGB 29 pg (26-34) MEAN CORPUSCULAR HGB CONC 33 g/dL (31-37) RED CELL DISTRIBUTION WIDTH 13.8 % (11.6-14.8) PLATELET COUNT 228 K/uL (150-400) NEUTROPHIL % 82.0 H % (50-75) LYMPH % 12.1 L % (25-40) MONO % 5.6 % (3-14) EOSINOPHIL % 0 % (0-4) BASOPHIL % 0.3 % (0-2) CMP: (JOEL: 12/20/2016 21:14) ( MsgRcvd 12/20/2016 21:41) Final results Test Result Flag Units (Reference) GLUCOSE 94 mg/dL (70-110) BUN 21 H mg/dL (7-18) CREATININE 1.2 mg/dL (0.6-1.3) Estimated GFR >60 mL/min Estimated GFR- >60 mL/min Note: Persistent reduction over 3 months in eGFR<60 mL/min/1.73 m2 defines CKD. Patients with eGFR values>=60 mL/min/1.73 m2 may also have CKD if evidence ofpersistent proteinuria. Additional information may be foundat www.kidney.org. SODIUM 138 mmol/L (136-145) POTASSIUM 4.5 mmol/L (3.5-5.1) CHLORIDE 100 mmol/L (98-107) CARBON DIOXIDE 32 mmol/L (21-32) CALCIUM 8.8 mg/dL (8.5-10.1) TOTAL PROTEIN 7.5 g/dL (6.4-8.2) ALBUMIN 4.2 g/dL (3.3-5.0) BILIRUBIN, TOTAL 0.5 mg/dL (0.0-1.0) ALKALINE PHOSPHATASE 55 U/L (46-116) AST (SGOT) 23 U/L (15-37) ALT (SGPT) 58 U/L (12-78) LIPASE 121 U/L (73-393) AMYLASE 53 U/L (25-115) . CLINICAL IMPRESSION Constipation Moderate acquired polycythemia. INSTRUCTIONS Drink plenty of fluids. Your Current Medications: CONTINUE TAKING THE FOLLOWING MEDICATIONS: PredniSONE Oral : daily. Vicodin Oral : Tablet 5-300 mg, 2 tablets 4x a day, prn. Prescription Medications: Bentyl 20 mg tablets: take 1 orally every 6 hours as needed for abdominal cramps or abdominal discomfort. Dispense thirty (30). No refill. Substitution is permissible. Follow-up: Follow up with your doctor in about two days. Call for an appointment. Jean Macias Dr.
--- NOTE | 2016-12-21 02:32 | DIAGNOSTIC IMAGING REPORT ---
PROCEDURE: XR ABDOMEN 1 VIEW INDICATION: ABDOMINAL PAIN TECHNIQUE: AP upright view. COMPARISON: Compared to CT abdomen pelvis on 12/18/2016. FINDINGS: Moderate stool throughout the colon. Soft tissues and osseous structures are normal. No evidence of free air. IMPRESSION: 1. Moderate stool throughout the colon. Consider obstipation.
--- NOTE | 2016-12-21 17:29 | ED DISCHARGE INSTRUCTIONS ---
Patient: RENATA CALDWELL General Instructions [facility] VisitID: [id number] [place] [address] 36y, M Registration Date/Time: 12/20/2016 Constipation Moderate acquired polycythemia. INSTRUCTIONS Drink plenty of fluids. Your Current Medications: CONTINUE TAKING THE FOLLOWING MEDICATIONS: PredniSONE Oral : daily. Vicodin Oral : Tablet 5-300 mg, 2 tablets 4x a day, prn. Prescription Medications: Bentyl 20 mg tablets: take 1 orally every 6 hours as needed for abdominal cramps or abdominal discomfort. Dispense thirty (30). No refill. Substitution is permissible. Follow-up: Follow up with your doctor in about two days. Call for an appointment. ADDITIONAL INFORMATION Constipation (Adult) Constipation is bowel movements that are less frequent than usual. Stools often become very hard and difficult to pass. This may lead to abdominal pain and bloating. It may also cause painful bowel movements. Constipation may be due to a diet thats low in fiber. Some medications, especially pain medications, can also cause it. Constipation may be treated with enemas, suppositories, laxatives or stool softeners. Your doctor will advise you which will work best for you. Follow the advice below to help avoid this problem in the future. Home Care Medication: Take any medicines as directed. Some laxatives are safe only for occasional use. Others can be taken on a regular basis. Talk to your doctor or pharmacist if you have questions. General Care: Prescription pain medications can cause constipation. If you are prescribed pain medications, ask the doctor whether you should also take a stool softener. A diet high in fiber with plenty of fluids helps to maintain regular, soft bowel movements. The following foods are good sources of dietary fiber: Cereals and breads: Whole grain cereal with bran, oatmeal, rolled oats, whole grain breads Fruits: All fruits (fresh and dried), raisins, prunes, apricots, berries, figs Vegetables: Any fresh vegetables, especially peas, broccoli, brussels sprouts, winter squash, green beans, cauliflower, coello beans, carrots Other: Popcorn, brown rice Drink plenty of water when you increase the amount of fiber you eat. Follow Up with your doctor or return to this facility if symptoms do not improve in the next few days. You may require further tests or a referral to a specialist. Get Prompt Medical Attention if any of the following occur: Fever over 100.4F (38C) Failure to resume normal bowel movements Increasing abdominal or back pain Nausea or vomiting Abdominal swelling Blood in the stool Weakness, dizziness or fainting Unexpected vaginal bleeding Dicyclomine Hydrochloride Oral tablet What is this medicine? DICYCLOMINE (dye SYE daquan hansen) is used to treat bowel problems including irritable bowel syndrome. How should I use this medicine? Take this medicine by mouth with a glass of water. Follow the directions on the prescription label. It is best to take this medicine on an empty stomach, 30 minutes to 1 hour before meals. Take your medicine at regular intervals. Do not take your medicine more often than directed. Talk to your table assembler metal regarding the use of this medicine in children. Special care may be needed. While this drug may be prescribed for children as young as 6 months of age for selected conditions, precautions do apply. Patients over 65 years old may have a stronger reaction and need a smaller dose. What side effects may I notice from receiving this medicine? Side effects that you should report to your doctor or health wound care coordinator as soon as possible: agitation, nervousness, confusion difficulty swallowing dizziness, drowsiness fast or slow heartbeat hallucinations pain or difficulty passing urine Side effects that usually do not require medical attention (report to your doctor or health wound care coordinator if they continue or are bothersome): constipation headache nausea or vomiting sexual difficulty What may interact with this medicine? amantadine antacids benztropine digoxin disopyramide medicines for allergies, colds and breathing difficulties medicines for alzheimer's disease medicines for anxiety or sleeping problems medicines for depression or psychotic disturbances medicines for diarrhea medicines for pain metoclopramide tegaserod What if I miss a dose? If you miss a dose, take it as soon as you can. If it is almost time for your next dose, take only that dose. Do not take double or extra doses. Where should I keep my medicine? Keep out of the reach of children. Store at room temperature below 30 degrees C (86 degrees F). Protect from light. Throw away any unused medicine after the expiration date. What should I tell my health care provider before I take this medicine? They need to know if you have any of these conditions: difficulty passing urine esophagus problems or heartburn glaucoma heart disease, or previous heart attack myasthenia gravis prostate trouble stomach infection, or obstruction ulcerative colitis an unusual or allergic reaction to dicyclomine, other medicines, foods, dyes, or preservatives or trying to get breast-feeding What should I watch for while using this medicine? You may get drowsy, dizzy, or have blurred vision. Do not drive, use machinery, or do anything that needs mental alertness until you know how this medicine affects you. To reduce the risk of dizzy or fainting spells, do not sit or stand up quickly, especially if you are an older patient. Alcohol can make you more drowsy, avoid alcoholic drinks. Stay out of bright light and wear sunglasses if this medicine makes your eyes more sensitive to light. Avoid extreme heat (hot tubs, saunas). This medicine can cause you to sweat less than normal. Your body temperature could increase to dangerous levels, which may lead to heat stroke. Antacids can stop this medicine from working. If you get an upset stomach and want to take an antacid, make sure there is an interval of at least 1 to 2 hours before or after you take this medicine. Your mouth may get dry. Chewing sugarless gum or sucking hard candy, and drinking plenty of water may help. Contact your doctor if the problem does not go away or is severe. You have been given the following additional information: Constipation (Adult) Dicyclomine Hydrochloride Oral tablet (Electronically signed by Jean Macias Dr. 12/21/2016 0:41)
--- NOTE | 2016-12-21 17:29 | ED MED RECONCILIATION SUMMARY ---
Patient: RENATA CALDWELL Medication Reconciliation Report [facility] VisitID: [id number] [address] [place] [address] 36y, M Registration Date/Time: 12/20/2016 Weight: 108.8 kg Height/Length: 73 in. BMI: 31.7 ALLERGIES: None The patient's Home Medications are listed below: CONTINUE TAKING THE FOLLOWING MEDICATIONS: PredniSONE Oral, daily Vicodin Oral (5-300 mg) 2 tablets, 4x a day The source(s) of the original Home Medication information: Not obtained. The following Medications were given to the patient in the Emergency Department: IV NS IV Fluids bolus 0, then 1000 mL/hr, administered: 12/20/2016 9:19:00 PM Toradol [IVP] IVP 30 mg, administered: 12/20/2016 9:24:00 PM Bentyl [PO] PO 40 mg, administered: 12/20/2016 9:20:00 PM Zofran [IVP] IVP 4 mg, administered: 12/20/2016 9:20:00 PM The following Medications were prescribed to the patient: Bentyl 20 mg tablets: take 1 orally every 6 hours as needed for abdominal cramps or abdominal discomfort. Dispense thirty (30). No refill. Substitution is permissible. -- Jean Macias Dr.
--- NOTE | 2016-12-21 17:29 | ED MAR SUMMARY ---
..... Medication Administration Record [facility] [address] [place] [address] Patient: RENATA CALDWELL Visit ID: [id number] 36y, M Weight: 108.8 kg Height/Length: 73 in BMI: 31.7 ALLERGIES: None Start 21:19 12/20/2016 Bridgette Ewing R.N., Stop 22:36 12/20/2016 Bridgette Ewing R.N. Medication Administered: IV NS (SALINE), Dose: IV Fluids, Rate: 1000 mL/hr, Dispensed: 1000 mL bag, Site: #1 right AC. Medication Ordered: IV NS : initial bolus none -, then 1000 mL/hr for X1 (NOW). Given :12/20/2016 Bridgette Ewing R.N. Medication Administered: ZOFRAN [IVP] (ONDANSETRON HCL), Dose: 4 mg IVP, Site: #1 right AC. Medication Ordered: Zofran IV 4 mg (NOW). Given :12/20/2016 Bridgette Ewing R.N. Medication Administered: BENTYL [PO] (DICYCLOMINE HCL), Dose: 40 mg PO. Medication Ordered: Bentyl PO 40 mg (NOW). Given 21:12/20/2016 Bridgette Ewing R.N. Medication Administered: TORADOL [IVP], Dose: 30 mg IVP, Site: #1 right AC. Medication Ordered: Toradol IV 30 mg (NOW).
--- NOTE | 2016-12-21 17:29 | ED MED RECONCILIATION SUMMARY ---
Patient: RENATA CALDWELL Medication Reconciliation Report [facility] VisitID: [id number] [address] [place] [address] 36y, M Registration Date/Time: 12/20/2016 Weight: 108.8 kg Height/Length: 73 in. BMI: 31.7 ALLERGIES: None The patient's Home Medications are listed below: CONTINUE TAKING THE FOLLOWING MEDICATIONS: PredniSONE Oral, daily Vicodin Oral (5-300 mg) 2 tablets, 4x a day The source(s) of the original Home Medication information: Not obtained. The following Medications were given to the patient in the Emergency Department: IV NS IV Fluids bolus 0, then 1000 mL/hr, administered: 12/20/2016 9:19:00 PM Toradol [IVP] IVP 30 mg, administered: 12/20/2016 9:24:00 PM Bentyl [PO] PO 40 mg, administered: 12/20/2016 9:20:00 PM Zofran [IVP] IVP 4 mg, administered: 12/20/2016 9:20:00 PM The following Medications were prescribed to the patient: Bentyl 20 mg tablets: take 1 orally every 6 hours as needed for abdominal cramps or abdominal discomfort. Dispense thirty (30). No refill. Substitution is permissible. -- Jean Macias Dr.
--- NOTE | 2016-12-21 17:29 | ED MAR SUMMARY ---
..... Medication Administration Record [facility] [address] [place] [address] Patient: RENATA CALDWELL Visit ID: [id number] 36y, M Weight: 108.8 kg Height/Length: 73 in BMI: 31.7 ALLERGIES: None Start 21:19 12/20/2016 Bridgette Ewing R.N., Stop 22:36 12/20/2016 Bridgette Ewing R.N. Medication Administered: IV NS (SALINE), Dose: IV Fluids, Rate: 1000 mL/hr, Dispensed: 1000 mL bag, Site: #1 right AC. Medication Ordered: IV NS : initial bolus none -, then 1000 mL/hr for X1 (NOW). Given :12/20/2016 Bridgette Ewing R.N. Medication Administered: ZOFRAN [IVP] (ONDANSETRON HCL), Dose: 4 mg IVP, Site: #1 right AC. Medication Ordered: Zofran IV 4 mg (NOW). Given :12/20/2016 Bridgette Ewing R.N. Medication Administered: BENTYL [PO] (DICYCLOMINE HCL), Dose: 40 mg PO. Medication Ordered: Bentyl PO 40 mg (NOW). Given 21:12/20/2016 Bridgette Ewing R.N. Medication Administered: TORADOL [IVP], Dose: 30 mg IVP, Site: #1 right AC. Medication Ordered: Toradol IV 30 mg (NOW).
== END 2016-12-20 23:36 | disposition home or self-care (01) ==
LOC: ED SRH 20:08
DX: K59.00 Constipation, unspecified (principal); D75.1 Secondary polycythemia; Z79.899 Other long term (current) drug therapy
CPT/HCPCS: 90004; 90100; 92235; 92530; 95059